=== PATIENT | male | born 1955 | race Caucasian/White ===

== ENCOUNTER 2023-03-26 08:52 | Outpatient (OUT) | payer MEDICARE, OTHER, SELFPAY ==
[2023-03-26 09:16] LABS: Eosinophils Absolute Auto 0.1 10^3/uL (0.0-0.7); Eosinophils Percent Auto 2.3 % (0.9-7.0); Hematocrit 40.1 % (42.0-54.0); Hemoglobin 13.9 g/dL (14.0-18.0); Immature Granulocytes Abs Auto 0.01 10^3/uL (0.00-0.03); Immature Granulocytes Pct Auto 0.3 % (0.0-0.5); Lymphocytes Absolute Auto 1.2 10^3/uL (1.2-3.8); Lymphocytes Percent Auto 31.1 % (20.5-60.0); Mean Corpuscular HGB Conc 34.7 g/dL (29.9-35.2); Mean Corpuscular Hemoglobin 30.5 pg (25.9-34.0); Mean Corpuscular Volume 87.9 fL (80.0-94.0); Mean Platelet Volume 9.1 fL (9.5-13.5); Monocytes Absolute Auto 0.4 10^3/uL (0.3-0.8); Monocytes Percent Auto 11.2 % (1.7-12.0); Neutrophils Absolute Auto 2.1 10^3/uL (1.4-6.5); Neutrophils Percent Auto 54.1 % (43.0-75.0); Platelet Count 141 10^3/uL (150-450); Red Blood Count 4.56 10^6/uL (4.70-6.10); Red Cell Distribution Width 12.2 % (11.0-15.0); White Blood Count 3.8 10^3/uL (4.0-11.0)
[2023-03-26 09:44] LABS: Estimated Average Glucose 105 mg/dL; Glycohemoglobin A1C 5.3 % (4.5-6.2)
[2023-03-26 09:45] LABS: Alanine Aminotransferase 41 U/L (16-63); Anion Gap 12.3; BUN Creatinine Ratio 15.7; Calcium 9.2 mg/dL (8.5-10.1); Carbon Dioxide 27.2 mmol/L (21.0-32.0); Chloride 106 mmol/L (98-107); Chol HDL Ratio 3.4; Cholesterol 131 mg/dL (<=200); Estimated GFR (African America >60 (>=60); Estimated GFR (Non-African Ame >60 (>=60); Glucose 129 mg/dL (74-106); HDL Cholesterol 38 mg/dL (40-60); Potassium 4.5 mmol/L (3.5-5.1); Sodium 141 mmol/L (136-145); Triglycerides 64 mg/dL (<=150); VLDL CHOLESTEROL 12.8 mg/dL
== END 2023-03-26 08:53 ==
LOC: LAB 08:58
PROVIDERS: PCP Internal Medicine; Visit Provider Internal Medicine
DX: I10 Essential (primary) hypertension (principal); E78.5 Hyperlipidemia, unspecified; Z79.899 Other long term (current) drug therapy; R73.01 Impaired fasting glucose
CPT/HCPCS: 36415; 80048; 80061; 83036; 84460; 85025

== ENCOUNTER 2023-07-03 09:58 | Outpatient (OUT) | payer MEDICARE, OTHER, SELFPAY ==
[2023-07-03 11:12] LABS: Basophils Percent Auto 0.9 % (0.2-2.0); Eosinophils Absolute Auto 0.1 10^3/uL (0.0-0.7); Eosinophils Percent Auto 1.7 % (0.9-7.0); Hematocrit 39.3 % (42.0-54.0); Hemoglobin 13.7 g/dL (14.0-18.0); Immature Granulocytes Abs Auto 0.01 10^3/uL (0.00-0.03); Immature Granulocytes Pct Auto 0.2 % (0.0-0.5); Lymphocytes Absolute Auto 1.4 10^3/uL (1.2-3.8); Lymphocytes Percent Auto 29.3 % (20.5-60.0); Mean Corpuscular HGB Conc 34.9 g/dL (29.9-35.2); Mean Corpuscular Hemoglobin 30.9 pg (25.9-34.0); Mean Corpuscular Volume 88.5 fL (80.0-94.0); Mean Platelet Volume 9.5 fL (9.5-13.5); Monocytes Absolute Auto 0.5 10^3/uL (0.3-0.8); Monocytes Percent Auto 9.7 % (1.7-12.0); Neutrophils Absolute Auto 2.7 10^3/uL (1.4-6.5); Neutrophils Percent Auto 58.2 % (43.0-75.0); Platelet Count 165 10^3/uL (150-450); Red Blood Count 4.44 10^6/uL (4.70-6.10); Red Cell Distribution Width 12.6 % (11.0-15.0); White Blood Count 4.6 10^3/uL (4.0-11.0)
== END 2023-07-03 09:59 | disposition home or self-care (01) ==
PROVIDERS: PCP Internal Medicine; Visit Provider Internal Medicine
DX: D61.818 Other pancytopenia (principal)
CPT/HCPCS: 36415; 85025

== ENCOUNTER 2023-09-20 09:18 | Outpatient (OUT) | payer MEDICARE, OTHER, SELFPAY ==
[2023-09-20 09:40] LABS: Basophils Percent Auto 0.9 % (0.2-2.0); Eosinophils Absolute Auto 0.1 10^3/uL (0.0-0.7); Eosinophils Percent Auto 1.8 % (0.9-7.0); Hematocrit 41.6 % (42.0-54.0); Hemoglobin 14.1 g/dL (14.0-18.0); Immature Granulocytes Abs Auto 0.01 10^3/uL (0.00-0.03); Immature Granulocytes Pct Auto 0.2 % (0.0-0.5); Lymphocytes Absolute Auto 1.2 10^3/uL (1.2-3.8); Lymphocytes Percent Auto 27.6 % (20.5-60.0); Mean Corpuscular HGB Conc 33.9 g/dL (29.9-35.2); Mean Corpuscular Hemoglobin 30.3 pg (25.9-34.0); Mean Corpuscular Volume 89.3 fL (80.0-94.0); Mean Platelet Volume 9.3 fL (9.5-13.5); Monocytes Absolute Auto 0.4 10^3/uL (0.3-0.8); Monocytes Percent Auto 9.2 % (1.7-12.0); Neutrophils Absolute Auto 2.7 10^3/uL (1.4-6.5); Neutrophils Percent Auto 60.3 % (43.0-75.0); Platelet Count 154 10^3/uL (150-450); Red Blood Count 4.66 10^6/uL (4.70-6.10); Red Cell Distribution Width 12.5 % (11.0-15.0); White Blood Count 4.5 10^3/uL (4.0-11.0)
[2023-09-20 10:43] LABS: Percent Iron Saturation 34.4 %
== END 2023-09-20 09:19 | disposition home or self-care (01) ==
LOC: LAB 09:19
PROVIDERS: PCP Internal Medicine; Visit Provider Internal Medicine
DX: D64.9 Anemia, unspecified (principal)
CPT/HCPCS: 36415; 82607; 82728; 82746; 83540; 83550; 85025

== ENCOUNTER 2024-03-26 10:01 | Outpatient (OUT) | payer MEDICARE, OTHER, SELFPAY ==
--- OUTSIDE RECORDS SUMMARY | 2024-03-26 10:13 | XMS_ITS | CCD ---
Author Organization [facility]ini[facility] Care Team Providers Care Inbound Customer Service Agent Name Role Phone ZACHARY CAMARGO Primary Care Physician MARY JO, DR NGUYỄN Primary Care Unavailable MARY JO, DR NGUYỄN Admitting Unavailable BALL, DR NGUYỄN Attending Unavailable BALL, DR NGUYỄN Consulting Unavailable BALL, DR NGUYỄN Admitting Unavailable MARY JO, DR NGUYỄN Attending Unavailable BALL, DR NGUYỄN Consulting Unavailable BALL, DR NGUYỄN Primary Care Unavailable Zachary Camargo Unavailable Boris CORDERO Attending Unavailable CORDERO, Boris Hamilton Attending Unavailable CORDERO, Boris Hamilton Attending Unavailable CORDERO, Boris Hamilton Admitting Unavailable Allergies Allergy Classification Reported Allergen(s) Allergy Type Date of Onset Reaction(s) Facility (1 source) No Known Medication Allergies; Translations: [No Known Medication Allergies] Propensity to adverse reactions (disorder) [facility] Repository (2 sources) patient allergy list reviewed by nurse or physicia Propensity to adverse reactions Comment:Done [employer] Other Medications Current Medications Medication Drug Class(es) Dates Sig (Normalized) Sig (Original) acetaminophen 325 mg / HYDROcodone bitartrate 7.5 mg oral tablet (3 sources) Opioid Agonist Start: 04-25-2022 take 1 tablet by mouth once, then take 1 tablet by mouth every hour [place] 325 mg-7.5 mg oral tablet 1 tab(s), Oral, Once, 1 tab(s), Refill(s) 0, Take 1 hour prior to procedure. Don't drive or operate machinery while taking this medication., [facility]/pharmacy #[id number], 180, cm, 02/20/22 8:48:00 EDT, Height/Length Dosing, 96.8, kg, 02/20/22 8:48:00 EDT, Weig... Start Date: 04/25/22 Status: Ordered Aspir 81 (5 sources) Start: 07-17-2021 take 81 mg by mouth once daily Aspir 81 81 mg, Oral, Daily, Refills(s) 0, Blood Thinner Start Date: 07/17/21 Status: Ordered aspirin 81 mg chewable tablet (1 source) Platelet Aggregation Inhibitor, Nonsteroidal Anti-inflammatory Drug Start: 03-31-2020 take 81 mg by mouth once daily Aspirin Active 81 MG PO Daily March 31, 2020 12:00am atorvastatin 20 mg oral tablet (12 sources) HMG-CoA Reductase Inhibitor Start: 03-31-2020 take 1 tablet by mouth at bedtime atorvastatin 20 mg Tab 20 mg = 1 tab(s), Oral, Bedtime, Refills(s) 0, High cholesterol Start Date: 07/14/21 Status: Ordered Osteo Bi-Flex (5 sources) Start: 07-17-2021 take 1 tablet by mouth twice daily Osteo Bi-Flex 1 tab, Oral, BID, Refill(s) 0, Prophylaxis Start Date: 07/17/21 Status: Ordered ciprofloxacin 500 mg oral tablet (3 sources) Quinolone Antimicrobial Start: 04-25-2022 End: 04-28-2022 Cipro 500 mg Tab 500 mg = 1 tab(s), Oral, q12hr, Start 3 days prior to procedure, X 3 day(s), # 6 tab(s), Refills(s) 0, Pharmacy: [facility]/pharmacy #[id number], 180, cm, 02/20/22 8:48:00 EDT, Height/Length Dosing, 96.8, kg, 02/20/22 8:48:00 EDT, Weight Dosing Start Date: 04/25/22 Stop Date: 04/28/22 Status: Ordered Start: 09-14-2021 End: 02-27-2022 take 1 tablet by mouth twice daily Cipro 500 mg Tab 500 mg = 1 tab(s), Oral, BID, X 7 day(s), # 14 tab(s), Refills(s) 0, Pharmacy: [facility]/pharmacy #[id number], 180, cm, 02/20/22 8:48:00 EDT, Height/Length Dosing, 96.8, kg, 02/20/22 8:48:00 EDT, Weight Dosing Start Date: 02/20/22 Stop Date: 02/27/22 Status: Ordered Fish Bsn-Ookyk-8-Vit C-Vit E (1 source) Start: 03-31-2020 take 1 g by mouth once daily Fish Agm-Yqaph-6-Vit C-Vit E Active 1 GM PO Daily March 31, 2020 12:00am Fish Oils (5 sources) Start: 07-17-2021 take 1200 mg by mouth twice daily Fish Oil 1,200 mg, Oral, BID, Refill(s) 0, Prophylaxis Start Date: 07/17/21 Status: Ordered Ibqtmypzamz-G7-Npqgsb christopeh Serr (Osteo Bi-Flex (5-Loxin)) 1,500-400-100 mg-unit-mg Tablet (1 source) Start: 03-31-2020 take 1 tablet by mouth once daily Yrsqkfcinss-T8-Jrzgp llia Serr (Osteo Bi-Flex (5-Loxin)) 1,500-400-100 mg-unit-mg Tablet Active 1 TAB PO Daily March 31, 2020 12:00am lisinopril 20 mg oral tablet (12 sources) Angiotensin Converting Enzyme Inhibitor Start: 03-31-2020 take 1 tablet by mouth once daily lisinopril 20 mg Tab 20 mg = 1 tab(s), Oral, Daily, Refills(s) 0, High blood pressure Start Date: 07/14/21 Status: Ordered metFORMIN hydrochloride 500 mg oral tablet (6 sources) Biguanide Start: 03-31-2020 Metformin Active 500 MG PO As Directed March 31, 2020 12:00am Vitamin D and K oral tablet (5 sources) Start: 09-07-2021 take 1 tablet by mouth once daily Vitamin D and K oral tablet 1 tab, Oral, Daily, Prophylaxis Start Date: 09/07/21 Status: Ordered Completed/Discontinued Medications Medication Drug Class(es) Dates Sig (Normalized) Sig (Original) plenvu 140 gm solution reconstituted (6 sources) Osmotic Laxative, Vitamin C Start: 03-21-2020 Plenvu 140 GM dose 1 pouch at 4pm, dose 2 pouch A & B at 11pm Orally BID for 1 days BIN:[id number] PCN: [id number] GROUP:[id number] ID:[id number] Mar, Not-Taking/PRN Start: 03-21-2020 Plenvu 140 GM dose 1 pouch at 4pm, dose 2 pouch A & B at 11pm Orally BID for 1 days BIN:[id number] PCN: [id number] GROUP:[id number] ID:[id number] Mar, Not-Taking Suprep Bowel Prep Kit 17.5-3.13-1.6 GM/180ML (6 sources) Start: 03-29-2020 take 177 mL by mouth in the evening, then take 177 mL by mouth twice daily in the evening Suprep Bowel Prep Kit 17.5-3.13-1.6 GM/180ML 177 ml bottle at 4 pm and 177 ml bottle at 11 pm Orally Twice a day for 1 day(s) PLEASE CHECK ALLERGIES Mar, Not-Taking/PRN Start: 03-29-2020 take 177 mL by mouth in the evening, then take 177 mL by mouth twice daily in the evening Suprep Bowel Prep Kit 17.5-3.13-1.6 GM/180ML 177 ml bottle at 4 pm and 177 ml bottle at 11 pm Orally Twice a day for 1 day(s) PLEASE CHECK ALLERGIES Mar, Not-Taking Problems Active Problems Problem Classification Problem Date Documented Date Episodic/Chronic Deficiency and other anemia (5 sources) Pancytopenia; Translations: [Other pancytopenia] Chronic Deficiency and other anemia (1 source) Other pancytopenia Chronic Deficiency and other anemia (1 source) Anemia, unspecified Episodic Diabetes mellitus with complications (2 sources) Hyperglycemia due to type 2 diabetes mellitus; Translations: [Type 2 diabetes mellitus with hyperglycemia] Chronic Diabetes mellitus without complication (5 sources) Type 2 diabetes mellitus 09-07-2021 Chronic Diabetes mellitus without complication (20 sources) Impaired fasting glucose; Translations: [Impaired fasting glycemia] Onset: 03-23-2022 Episodic Disorders of lipid metabolism (20 sources) Familial hypercholesterolemia; Translations: [Familial hypercholesterolemia] Onset: 11-07-2018 Resolved: 03-08-2020 09-07-2021 Chronic Essential hypertension (20 sources) Essential hypertension; Translations: [Essential (primary) hypertension] Onset: 03-23-2022 09-07-2021 Chronic Genitourinary symptoms and ill-defined conditions (2 sources) Nocturia Episodic Gout and other crystal arthropathies (2 sources) Gout; Translations: [Gout, unspecified] Onset: 11-07-2018 Chronic Hyperplasia of prostate (19 sources) Benign prostatic hypertrophy with outflow obstruction; Translations: [Benign prostatic hyperplasia with lower urinary tract symptoms] Onset: 02-19-2022 Chronic Other aftercare (2 sources) Other timber cutter (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) drug therapy; Translations: [OTH ALF CURRENT DRUG THERAPY] Onset: 03-23-2022 Episodic Other aftercare (6 sources) H/O: high risk medication; Translations: [Other custodial (current) drug therapy] Episodic Other aftercare (2 sources) Long-term current use of drug therapy; Translations: [Other custodial (current) drug therapy] Episodic Other connective tissue disease (6 sources) H/O: gout; Translations: [Personal history of other diseases of the musculoskeletal system and connective tissue] Episodic Other connective tissue disease (2 sources) H/O: musculoskeletal disease; Translations: [Personal history of other diseases of the musculoskeletal system and connective tissue] Episodic Other diseases of kidney and ureters (1 source) Urinary tract obstruction; Translations: [Other obstructive and reflux uropathy] Onset: 02-19-2022 Episodic Other injuries and conditions due to external causes (2 sources) History of fall; Translations: [History of falling] Episodic Other male genital disorders (8 sources) Prostatic intraepithelial neoplasia; Translations: [Prostatic intraepithelial neoplasia] Onset: 02-20-2022 Episodic Other male genital disorders (2 sources) Prostatic intraepithelial neoplasia Episodic Other nutritional; endocrine; and metabolic disorders (3 sources) Overweight; Translations: [Overweight] 03-24-2024 Episodic Other nutritional; endocrine; and metabolic disorders (2 sources) Overweight; Translations: [Overweight] Episodic Other screening for suspected conditions (not mental disorders or infectious disease) (20 sources) Raised prostate specific antigen; Translations: [Elevated prostate specific antigen [PSA]] Onset: 02-19-2022 Resolved: 03-20-2022 Episodic Skin and subcutaneous tissue infections (11 sources) Carbuncle of back; Translations: [Carbuncle of back [any part, except buttock]] 09-07-2021 Episodic Spondylosis; intervertebral disc disorders; other back problems (9 sources) Cervical spondylosis; Translations: [Spondylosis without myelopathy or radiculopathy, cervical region] Chronic Substance-related disorders (20 sources) Nicotine dependence; Translations: [Tobacco dependence in remission] 07-14-2021 Chronic Past or Other Problems Problem Classification Problem Date Documented Date Episodic/Chronic Cancer of prostate (9 sources) Malignant tumor of prostate; Translations: [High grade prostatic intraepithelial neoplasia] Onset: 09-26-2021 Resolved: 03-20-2022 09-27-2021 Chronic Other nutritional; endocrine; and metabolic disorders (2 sources) Body mass index 30+ - obesity; Translations: [Body mass index 31.0-31.9, adult] Onset: 11-11-2018 Resolved: 03-08-2020 Chronic Other nutritional; endocrine; and metabolic disorders (2 sources) Simple obesity ; Translations: [Other obesity due to excess calories] Onset: 11-11-2018 Resolved: 03-08-2020 Chronic Unclassified (2 sources) Long-term current use of drug therapy; Translations: [Long-term (current) use of other medications] Onset: 11-11-2018 Resolved: 03-08-2020 Results Test Name Value Interpretation Reference Range Facility PSA TotalOrdered By: SYSTEM SYSTEM on 06-14-2023 Prostate specific Ag [Mass/Vol] 5.1 ng/mL High 0.1-3.5 [facility] Remisol Comment on above: Result Comment: The concentration of PSA determined by different manufacturers can vary due to differences in assay methods and reagent specificity. Values obtained from different assay methods cannot be used interchangeably. The methodology used for this result was chemiluminescence using [employer] PSA reagent. Performed By: #### 1 [id number] #### [facility] [address] [place] [id number] Patient Educationon 06-14-20 Patient Education Urology Benign Prostatic Hyperplasia Benign prostatic hyperplasia (BPH) is an enlarged prostate gland that is caused by the normal aging process. The prostate may get bigger as a man gets older. The condition is not caused by cancer. The prostate is a walnut-sized gland that is involved in the production of semen. It is located in front of the rectum and below the bladder. The bladder stores urine. The urethra carries stored urine out of the body. An enlarged prostate can press on the urethra. This can make it harder to pass urine. The buildup of urine in the bladder can cause infection. Back pressure and infection may progress to bladder damage and kidney (renal) failure. What are the causes? This condition is part of the normal aging process. However, not all men develop problems from this condition. If the prostate enlarges away from the urethra, urine flow will not be blocked. If it enlarges toward the urethra and compresses it, there will be problems passing urine. What increases the risk? This condition is more likely to develop in men older than 50 years. What are the signs or symptoms? Symptoms of this condition include: ? Getting up often during the night to urinate. ? Needing to urinate frequently during the day. ? Difficulty starting urine flow. ? Decrease in size and strength of your urine stream. ? Leaking (dribbling) after urinating. ? Inability to pass urine. This needs immediate treatment. ? Inability to completely empty your bladder. ? Pain when you pass urine. This is more common if there is also an infection. ? Urinary tract infection (UTI). How is this diagnosed? This condition is diagnosed based on your medical history, a physical exam, and your symptoms. Tests will also be done, such as: ? A post-void bladder scan. This measures any amount of urine that may remain in your bladder after you finish urinating. ? A digital rectal exam. In a rectal exam, your health care provider checks your prostate by putting a lubricated, gloved finger into your rectum to feel the back of your prostate gland. This exam detects the size of your gland and any abnormal lumps or growths. ? An exam of your urine (urinalysis). ? A prostate specific antigen (PSA) screening. This is a blood test used to screen for prostate cancer. ? An ultrasound. This test uses sound waves to electronically produce a picture of your prostate gland. Your health care provider may refer you to a specialist in kidney and prostate diseases (urologist). How is this treated? Once symptoms begin, your health care provider will monitor your condition (active surveillance or watchful waiting). Treatment for this condition will depend on the severity of your condition. Treatment may include: ? Observation and yearly exams. This may be the only treatment needed if your condition and symptoms are mild. ? Medicines to relieve your symptoms, including: ? Medicines to shrink the prostate. ? Medicines to relax the muscle of the prostate. ? Surgery in severe cases. Surgery may include: ? Prostatectomy. In this procedure, the prostate tissue is removed completely through an open incision or with a laparoscope or robotics. ? Transurethral resection of the prostate (TURP). In this procedure, a tool is inserted through the opening at the tip of the penis (urethra). It is used to cut away tissue of the inner core of the prostate. The pieces are removed through the same opening of the penis. This removes the blockage. ? Transurethral incision (TUIP). In this procedure, small cuts are made in the prostate. This lessens the prostate's pressure on the urethra. ? Transurethral microwave thermotherapy (TUMT). This procedure uses microwaves to create heat. The heat destroys and removes a small amount of prostate tissue. ? Transurethral needle ablation (TUNA). This procedure uses radio frequencies to destroy and remove a small amount of prostate tissue. ? Interstitial laser coagulation (ILC). This procedure uses a laser to destroy and remove a small amount of prostate tissue. ? Transurethral electrovaporization (TUVP). This procedure uses electrodes to destroy and remove a small amount of prostate tissue. ? Prostatic urethral lift. This procedure inserts an implant to push the lobes of the prostate away from the urethra. Follow these instructions at home: ? Take ilzt-uiy-rbaafpz and prescription medicines only as told by your health care provider. ? Monitor your symptoms for any changes. Contact your health care provider with any changes. ? Avoid drinking large amounts of liquid before going to bed or out in public. ? Avoid or reduce how much caffeine or alcohol you drink. ? Give yourself time when you urinate. ? Keep all follow-up visits. This is important. Contact a health care provider if: ? You have unexplained back pain. ? Your symptoms do not get better with treatment. ? You develop side effects from the medicine (more content not included)... Normal [facility] Urology Office/Clinic Noteon 06-14-2023 Urology Office/Clinic Note Chief Complaint 1 year F/U with PSA HPI Staff 1 year F/U with PSA Previous DX; Elevated PSA Last PSA was 01/17/22 5.210. No recent PSA (pt thought he got it done @ [place]. Verified it was NOT done) BPH * No BPH meds at this time Dysuria: _denies Incomplete bladder emptying: denies Hematuria: denies visible blood Frequency: _5-6 times a day Urgency: _denies Nocturia: _once a night Stream: _denies hesitation, normal stream Leaking: _denies Post void dripping: _denies Wearing pads/ Depends: _denies Urge incontinence: _denies Stress incontinence: _denies Incontinence without Sensory Awareness: _denies Abdominal pain: _denies Flank pain: denies Sexual complaints: _denies History of Present Illness Tests reviewed: Reviewed UA. I have reviewed the previous health record information and history for this patient from Dr. Cordero. I have reviewed and verified the staff HPI to be accurate for this encounter. There have been no associated fever, chills, flank pain, or blood in the urine. Denies any urinary infections since last encounter. Review of Systems PHQ Score Initial Depression Screen Score: 0 ROS - Provider Constitutional: denies weight loss, denies hot flashes. Eyes: denies eye problems. Gastrointestinal: denies nausea, denies vomiting. Cardiovascular: denies chest pain or angina. Integumentary: no dryness Musculoskeletal: denies musculoskeletal symptoms. ENMT: denies otolaryngeal symptoms. Respiratory: no shortness of breath. Heme/Lymph: denies easy bleeding tendency, denies easy bruising tendency. Psychiatric: no confusion, no anxiety. Genitourinary: See HPI. Physical Exam Vitals & Measurements T: 36.6 ?C(Temporal Artery) HR: 78(Peripheral) BP: 138/90 HT: 71 in HT: 180 cm WT: 96.8 kg WT: 212.96 lb BMI: 29.88 General Appearance: alert, no distress, well nourished, well developed male. Genitourinary: normal scrotum, normal testes, normal urethra, normal epididymis, normal vas deferens/spermatic cord. Flank Pain: none. Bladder: nonpalpable. Prostate: normal prostate, estimated weight 40 gms, no hard nodule observed. Assessment/Plan 1. BPH with urinary obstruction (N40.1: Benign prostatic hyperplasia with lower urinary tract symptoms) Patient is not currently taking any prostate medications. Weak but steady stream, states it is not worsening. Emptying well. Doesn't always gets up during the night. Denies infections. UA today negative. We discussed medication management, but he states symptoms are not bothersome enough for treatment at this time. 2. Elevated PSA (R97.20: Elevated prostate specific antigen [PSA]) PSA: 04/28/21 - 5.8 & 13.8% 01/17/22 - 5.210 -Patient did not have PSA drawn prior to today's appointment -Will draw IO today Follow up in 1 year w/ PSA if current level is stable. 3. High grade prostatic intraepithelial neoplasia (N42.31: Prostatic intraepithelial neoplasia) S/p TRUS/bx 05/01/22. Path shows HGPIN, 3 cores with inflammation, the rest of the cores are benign. Per a previous note, patient had a second opinion from [facility], which shows no evidence of adenocarcinoma of the prostate. MRI 01/17/22 shows less suspicion for prostate CA Follow-up With When Contact Information CONSUELO HALL, Boris Hamilton, URL [address] [place] [address]- Additional Instructions: 1 year w/ PSA Patient Education Benign Prostatic Hyperplasia I, Noemí Raman, personally scribed for Dr. Cordero on 06/14/2023 10:31:32. . Documentation recorded by the scribe, Noemí Raman, accurately reflects the services(s) I performed and decisions made by me. Authenticated by Dr. Cordero on 06/14/2023 10:35:31. Problem List/Past Medical History Ongoing BPH with urinary obstruction Elevated PSA High grade prostatic intraepithelial neoplasia Nicotine dependence Prostate cancer Historical Carbuncle of back Diabetes mellitus, type II Essential hypertension Hyperlipidemia type II Procedure/Surgical History Biopsy of prostate (09/14/2021), Transrectal biopsy of prostate using ultrasound (US) guidance (09/14/2021), Colonoscopy (03/31/2020), Arthroscopy of knee, CEIOL - Cataract extraction and insertion of intraocular lens. Medications Aspir 81, 81 mg, Oral, Daily atorvastatin 20 mg Tab, 20 mg= 1 tab(s), Oral, Bedtime Fish Oil, 1200 mg, Oral, BID lisinopril 20 mg Tab, 20 mg= 1 tab(s), Oral, Daily Osteo Bi-Flex, 1 tab, Oral, BID Vitamin D and K oral tablet, 1 tab, Oral, Daily Allergies No Known Allergies No Known Medication Allergies Social History Alcohol Current, Beer, 1-2 times per month, 09/07/2021 Substance Abuse - Denies Substance Abuse, 09/07/2021 Tobacco Former smoker, quit more than 30 days ago Tobacco Use:. Cigars, Yes, 06/14/2023 Family History Diabetes: Father. Heart problem: Mother. Immunizations Vaccine Date Status Comments (more content not included)... Normal [facility] Comment on above: Result Comment: Elec tronically Signed By: Boris CORDERO MD\.br\Date and Time Signed: 06/14/23 10:35 EDT\.br\Electronically Co-Signed By: Noemí Raman\.br\Date and Time Co-Signed: 06/14/23 10:31 EDT\.br\Electronically Co-Signed By: Noemí Raman\.br\Date and Time Co-Signed: 06/14/23 10:32 EDT GLYCOHEMOGLOBIN A1Con 2021 ADA RECOMMENDATION SEE BELOW Normal [facility] Comment on above: Result Comment: ADA RECOMMENDED LIMIT 4.0 - 6.0 ADA THERAPEUTIC TARGET < 7.0 ACTION SUGGESTED > 7.0 Performed By: #### A 1C #### [facility] [address] [place] [address] Dr. Brenton Mondragon Glucose [Mass/Vol] 114 mg/dL Normal [facility] Comment on above: Performed By: #### A 1C #### [facility] [address] [place] [address] Dr. Brenton Mondragon HbA1c (Bld) [Mass fraction] 5.6 % Normal 4.5-6.2 [facility] Comment on above: Performed By: #### A 1C #### [facility] [address] [place] [address] Dr. Brenton Mondragon CBC AUTO DIFFon 03-22-2022 BASO # 0.0 103/ul Normal 0.0-0.1 [facility] Comment on above: Performed By: #### C BC #### [facility] [address] [place] [address] Dr. Brenton Mondragon Basophils/100 WBC (Bld) 0.4 % Normal 0.2-2.0 [facility] Comment on above: Performed By: #### C BC #### [facility] [address] [place] [address] Dr. Brenton Mondragon EO # 0.1 103/ul Normal 0.0-0.7 [facility] Comment on above: Performed By: #### C BC #### [facility] [address] [place] [address] Dr. Brenton Mondragon Eosinophils/100 WBC (Bld) 1.1 % Normal 0.9-7.0 [facility] Comment on above: Performed By: #### C BC #### [facility] [address] [place] [address] Dr. Brenton Mondragon Erythrocyte distribution width (RBC) [Ratio] 12.6 % Normal 11.0-15.0 [facility] Comment on above: Performed By: #### C BC #### [facility] [address] [place] [address] Dr. Brenton Mondragon Hematocrit (Bld) [Volume fraction] 41.7 % Critically low 42.0-54.0 [facility] Comment on above: Performed By: #### C BC #### [facility] [address] [place] [address] Dr. Brenton Mondragon Hemoglobin (Bld) [Mass/Vol] 14.5 g/dL Normal 14.0-18.0 [facility] Comment on above: Performed By: #### C BC #### [facility] [address] [place] [address] Dr. Brenton Mondragon IG # 0.01 10e3/ul Normal 0.00-0.03 [facility] Comment on above: Performed By: #### C BC #### [facility] [address] [place] [address] Dr. Brenton Mondragon IG % 0.2 % Normal 0.0-0.5 [facility] Comment on above: Performed By: #### C BC #### [facility] [address] [place] [address] Dr. Brenton Mondragon LYMPH # 1.3 103/ul Normal 1.2-3.8 [facility] Comment on above: Performed By: #### C BC #### [facility] [address] [place] [address] Dr. Brenton Mondragon Lymphocytes/100 WBC (Bld) 28.8 % Normal 20.5-60.0 [facility] Comment on above: Performed By: #### C BC #### [facility] [address] [place] [address] Dr. Brenton Mondragon MANUAL DIFF REQ NO Normal [facility] Comment on above: Performed By: #### C BC #### [facility] [address] [place] [address] Dr. Brenton Mondragon MCH (RBC) [Entitic mass] 30.5 pg Normal 25.9-34.0 [facility] Comment on above: Performed By: #### C BC #### [facility] [address] [place] [address] Dr. Brenton Mondragon MCHC (RBC) [Mass/Vol] 34.8 g/dL Normal 29.9-35.2 [facility] Comment on above: Performed By: #### C BC #### [facility] [address] [place] [address] Dr. Brenton Mondragon MCV (RBC) [Entitic vol] 87.8 fL Normal 80.0-94.0 [facility] Comment on above: Performed By: #### C BC #### [facility] [address] [place] [address] Dr. Brenton Mondragon MONO # 0.4 103/ul Normal 0.3-0.8 [facility] Comment on above: Performed By: #### C BC #### [facility] [address] [place] [address] Dr. Brenton Mondragon Monocytes/100 WBC (Bld) 8.2 % Normal 1.7-12.0 [facility] Comment on above: Performed By: #### C BC #### [facility] [address] [place] [address] Dr. Brenton Mondragon NEUT # 2.8 103/ul Normal 1.4-6.5 [facility] Comment on above: Performed By: #### C BC #### [facility] [address] [place] [address] Dr. Brenton Mondragon Neutrophils/100 WBC (Bld) 61.3 % Normal 43.0-75.0 [facility] Comment on above: Performed By: #### C BC #### [facility] [address] [address] [address] Brenton Mondragon Platelet mean volume (Bld) [Entitic vol] 9.3 fL Critically low 9.5-13.5 [facility] Comment on above: Performed By: #### C BC #### [facility] [address] [address] [address] Brenton Mondragon PLT 156 103/ul Normal 150-450 [facility] Comment on above: Performed By: #### C BC #### [facility] [address] [address] [address] Brenton Mondragon RBC 4.75 106/ul Normal 4.70-6.10 [facility] Comment on above: Performed By: #### C BC #### [facility] [address] [place] [address] Dr. Brenton Mondragon WBC 4.5 103/ul Normal 4.0-11.0 [facility] Comment on above: Performed By: #### C BC #### [facility] [address] [place] [address] Dr. Brenton Mondragon GLYCOHEMOGLOBIN A1Con 2021 ADA RECOMMENDATION SEE BELOW Normal [facility] Comment on above: Result Comment: ADA RECOMMENDED LIMIT 4.0 - 6.0 ADA THERAPEUTIC TARGET < 7.0 ACTION SUGGESTED > 7.0 Performed By: #### A 1C #### [facility] [address] [place] [address] Dr. Brenton Mondragon Glucose [Mass/Vol] 100 mg/dL Normal [facility] Comment on above: Performed By: #### A 1C #### [facility] [address] [place] [address] Dr. Brenton Mondragon HbA1c (Bld) [Mass fraction] 5.1 % Normal 4.5-6.2 [facility] Comment on above: Performed By: #### A 1C #### [facility] [address] [place] [address] Dr. Brenton Mondragon LIPID PROFILEon 03-22-2022 CHOL-HDL RATIO NORM SEE BELOW Normal [facility] Comment on above: Result Comment: 3.3 - 4.4 LOW RISK 4.4 - 7.1 AVERAGE RISK 7.1 - 11.0 MODERATE RISK >11.0 HIGH RISK Performed By: #### L IPID, ALT, BMP #### [facility] [address] [address] [address] Brenton Mondragon Cholesterol [Mass/Vol] 131 mg/dL Normal <=200 [facility] Comment on above: Performed By: #### L IPID, ALT, BMP #### [facility] [address] [address] [address] Brenton Mondragon Cholesterol in HDL [Mass/Vol] 44 mg/dL Normal 40-60 [facility] Comment on above: Performed By: #### L IPID, ALT, BMP #### [facility] [address] [address] [address] Brenton Mondragon Cholesterol in LDL [Mass/Vol] 77.4 mg/dL Normal [facility] Comment on above: Performed By: #### L IPID, ALT, BMP #### [facility] [address] [address] [address] Brenton Mondragon Cholesterol.total/Ch olesterol in HDL [Mass ratio] 3.0 {ratio} Normal [facility] Comment on above: Performed By: #### L IPID, ALT, BMP #### [facility] [address] [address] [address] Brenton Mondragon HDL NORMAL > or = 60 mg/dl - LO W CARDIOVASCULAR RISK <40 mg/dl - HIGH CARDIOVASCULAR RISK Normal [facility] Comment on above: Performed By: #### L IPID, ALT, BMP #### [facility] [address] [address] [address] Brenton Mondragon LDL CALC NORMAL SEE BELOW Normal [facility] Comment on above: Result Comment: <100 mg/dl OPTIMAL 100 - 129 mg/dl NEAR OR ABOVE OPTIMAL 130 - 159 mg/dl BORDERLINE HIGH 160 - 189 mg/dl HIGH >190 mg/dl VERY HIGH Performed By: #### L IPID, ALT, BMP #### [facility] [address] [address] [address] Brenton Mondragon Triglyceride [Mass/Vol] 48 mg/dL Normal <=150 [facility] Comment on above: Performed By: #### L IPID, ALT, BMP #### [facility] [address] [place] [address] Dr. Brenton Mondragon VLDL CALC 9.6 mg/dL Normal [facility] Comment on above: Performed By: #### L IPID, ALT, BMP #### [facility] [address] [place] [address] Dr. Brenton Mondragon PROF CHEM 8 (BAS METB)on Anion gap [Moles/Vol] 11.3 mmol/L Normal [facility] Comment on above: Performed By: #### L IPID, ALT, BMP #### [facility] [address] [place] [address] Dr. Brenton Mondragon Calcium [Mass/Vol] 9.3 mg/dL Normal 8.5-10.1 [facility] Comment on above: Performed By: #### L IPID, ALT, BMP #### [facility] [address] [place] [address] Dr. Brenton Mondragon Chloride [Moles/Vol] 106 mmol/L Normal 98-107 [facility] Comment on above: Performed By: #### L IPID, ALT, BMP #### [facility] [address] [place] [address] Dr. Brenton Mondragon CO2 [Moles/Vol] 28.0 mmol/L Normal 21.0-32.0 [facility] Comment on above: Performed By: #### L IPID, ALT, BMP #### [facility] [address] [place] [address] Dr. Brenton Mondragon Creatinine [Mass/Vol] 0.90 mg/dL Normal 0.70-1.30 [facility] Comment on above: Performed By: #### L IPID, ALT, BMP #### [facility] [address] [place] [address] Dr. Brenton Mondragon EGFR-AF ERITREAN >60 Normal >=60 [facility] Comment on above: Performed By: #### L IPID, ALT, BMP #### [facility] [address] [place] [address] Dr. Brenton Mondragon EGFR-NON AF ERITREAN >60 Normal >=60 [facility] Comment on above: Performed By: #### L IPID, ALT, BMP #### [facility] [address] [place] [address] Dr. Brenton Mondragon Glucose [Mass/Vol] 118 mg/dL Critically high 74-106 [facility] Comment on above: Performed By: #### L IPID, ALT, BMP #### [facility] [address] [place] [address] Dr. Brenton Mondragon Potassium [Moles/Vol] 4.3 mmol/L Normal 3.5-5.1 [facility] Comment on above: Performed By: #### L IPID, ALT, BMP #### [facility] [address] [place] [address] Dr. Brenton Mondragon Sodium [Moles/Vol] 141 mmol/L Normal 136-145 [facility] Comment on above: Performed By: #### L IPID, ALT, BMP #### [facility] [address] [place] [address] Dr. Brenton Mondragon Urea nitrogen [Mass/Vol] 13.0 mg/dL Normal 7.0-18.0 [facility] Comment on above: Performed By: #### L IPID, ALT, BMP #### [facility] [address] [place] [address] Dr. Brenton Mondragon Urea nitrogen/Creatinine [Mass ratio] 14.4 mg/mg Normal [facility] Comment on above: Performed By: #### L IPID, ALT, BMP #### [facility] [address] [place] [address] Dr. Brenton Mondragon [facility] 03-22-2022 ALT [Catalytic activity/Vol] 39 U/L Normal 16-63 [facility] Comment on above: Performed By: #### L IPID, ALT, BMP #### [facility] [address] [place] [address] Dr. Brenton CANTU XRay CREon 04-13-2022 Creatinine [Mass/Vol] 0.8 mg/dL Normal 0.6-1.3 [facility] Comment on above: Result Comment: ER/E SD physician is notified/shown all ISTAT results. Critical values may be confirmed by laboratory testing if deemed necessary by ER attending doctor. Performed By: #### I SCRE #### [facility] [address] [place] [address] Point of Care testing , ISTAT GFR ( > 60 Normal [facility] Comment on above: Result Comment: GFR estimated reference range: According to KDOQI guidelines, <60 ml/min/1.73m2 is sufficient to diagnose a patient with chronic kidney disease. PERFORMED BY: [place] [address] PATHOLOGIST APPLICATION SECURITY SPECIALIST DANIEL ABURTO M.D. Performed By: #### I SCRE #### [facility] [address] [place] [address] Point of Care testing , ISTAT GFR (Non- Am > 60 Normal [facility] Comment on above: Performed By: #### I SCRE #### [address] Point of Care testing , MR prostate wo/w conon 01-17 MR prostate wo/w con [facility] [place] [address] [place] [address] MRI Report Signed Patient: Hero Galloway MR#: [id number] : 1955 Acct:[id number] Age/Sex: 66 / M ADM Date: 01/17/22 Loc: MR Room: Type: [facility] Attending Dr: Boris Cordero MD Ordering Provider: Boris Cordero MD Date of Service: 01/17/22 MR/MR prostate wo/w con: r97.20,c61.1 Copies to: Boris Cordero MD EXAMINATION: MR prostate wo/w con HISTORY: Elevated PSA. History of prostate cancer. COMPARISON: Prostate MRI 07/20/2021 TECHNIQUE: Multiparametric imaging of the prostate gland was performed with IV contrast. FINDINGS: Examination is suboptimal due to breathing motion. Prostate Dimensions: 5.8 x 4.6 x 5.0 cm Prostate Volume: 70 mL. Peripheral Zone: Heterogenous and T2 suggestive of prior prostatitis. The previously identified focal area of T2 hypointensity involving the posterior aspect the left peripheral zone is less conspicuous on today's study with minimal restriction diffusion low ADC value. Please see series 4 image 17, series 750 image 13 and the synthetic DWI series image 13. No extraprostatic extension is seen. No new area of focal T2 or ADC abnormalities identified. Central/Transitional Zone: BPH changes. No focal T2 or ADC map abnormalities identified to suggest prostate malignancy. Seminal Vesicles: Decompressed without focal abnormality. Neurovascular bundles: Unremarkable. Lymphadenopathy: No evidence of lymphadenopathy. Bladder: No focal lesion. Bowel: The visualized bowel is without acute abnormality. Peritoneal Cavity: Bilateral fat filled inguinal hernias. No free fluid. Bones: Heterogenous bone marrow signal. No focal lesion is seen. MR/MR prostate wo/w con IMPRESSION: 1. Previously identified suspicious lesion involving the left peripheral zone is less conspicuous on today's study possibly posttreatment in nature. Examination is overall suboptimal due to motion. No MRI evidence of extraprostatic extension. 2. BPH. Impression dictated by: Jose Daniel Cevallos Jr., DDianeODiane01/17/2022 4:18 PM Dictation Location: [place] [address] Transcribed By: [facility] 01/17/22 1618 Dictated By: Jose Daniel Cevallos Jr, DO 01/17/22 1608 Signed By: 01/17/22 1618 Normal [facility] PSA Total (Not a Screen)on 0 01-17-2022 PSA Total (Not a Screen) 5.210 ng/mL High 0.000-4.000 [facility] Comment on above: Result Comment: PERF ORMED BY: [address] [place] [address] PATHOLOGIST APPLICATION SECURITY SPECIALIST DANIEL ABURTO M.D. Performed By: #### P SATOTAL #### [address] MR prostate wo/w conon 07-21 MR prostate wo/w con [facility] [address] MRI Report Signed Patient: Hero Galloway MR#: [id number] : 1955 Acct:[id number] Age/Sex: 65 / M ADM Date: 07/20/21 Loc: MR Room: Type: [facility] Attending Dr: Boris Cordero MD Ordering Provider: Boris Cordero MD Date of Service: 07/20/21 MR/MR prostate wo/w con: R97.20, ELEVATED PSA Copies to: Boris Cordero MD MRI OF THE PROSTATE GLAND WITHOUT AND WITH CONTRAST INDICATIONS: Elevated prostate specific antigen. Evaluate for prostate cancer. TECHNIQUE: MRI of the prostate gland with and without 20 ML ProHance. PSA 5.8. PI-RADS v2 Classification* PI-RADS 5 Highly Suspicious for Malignancy PI-RADS 4 Probably Malignant PI-RADS 3 Indeterminate PI-RADS 2 Probably Benign PI-RADS 1 Most Probably Benign *Based Upon ACR Guidelines October 2014. FINDINGS: Prostate Gland Size: The prostate gland measures 4.7 cm AP x 6.0 cm transverse x 6.2 cm craniocaudad consistent with a prostatic gland volume of 90.9 mL. PSA Density: 0.0638 ng/mL/cc. Central Zone: No tumor-suspicious regions are identified in the central zone. Transition Zone: There is advanced nodular enlargement and inhomogeneous signal intensity throughout the transition zone most commonly due to benign prostatic hyperplasia. No tumor- suspicious region is identified within the transition zone. Peripheral Zone: There is a tumor suspicious region, PI-RADS 4, involving the left peripheral zone in the mid gland. This is in the 5 o'clock position. This measures 5 x 4 x 4 mm. This can be seen on image 22 series 4 and image 15 series 5. This demonstrates non-circumscribed moderate T2 shortening and evidence of restricted diffusion with contrast enhancement. Extraprostatic Extension: None. Seminal Vesicle Invasion: None. Pelvic Lymphadenopathy: None. Urinary Bladder: The urinary bladder wall is normal in thickness without evidence of a mass. Rectosigmoid Colon: Mild rectal wall thickening. Adjacent enhancement of the mucosa. This could represent mild infection. Recommend further investigation to exclude neoplasm. There is no evidence of diverticulitis or diverticulosis. No rectal hemorrhoids are seen. Pelvic Osseous Structures: There is no evidence of osseous metastatic disease at the level of the prostate gland. IMPRESSION: 1. The prostate gland volume equals 90.9 mL. 2. The PSA density equals 0.0638 ng/mL/cc. 3. There is advanced nodular enlargement and inhomogeneous signal intensity throughout the transition zone most commonly due to benign prostatic hyperplasia. 4. Small tumor suspicious lesion within the left peripheral zone in the mid gland. This is in the 5 o'clock position. This is a PI-RADS 4 classification. 5. There is no evidence of extraprostatic extension of prostate cancer, seminal vesicle invasion or pelvic lymphadenopathy. 6. Area of rectal wall thickening with enhancement. This could be secondary to mild infection. Neoplasm not excluded. Recommend further investigation. Electronically signed on Jul 21, 2021 7:55:17 PM COT by: Lloyd Tsang MD Diplomate, [place] [employer] Report Completed: Jul 21, 2021 7:55:17 PM COT Transcribed By: 07/24/21 0958 Dictated By: NON STAFF 07/21/212054 Signed By: 07/24/21 1000 Normal [facility] ISTAT XRay CREon 07-20-2021 Creatinine [Mass/Vol] 1.0 mg/dL Normal 0.6-1.3 [facility] Comment on above: Result Comment: ER/E SD physician is notified/shown all ISTAT results. Critical values may be confirmed by laboratory testing if deemed necessary by ER attending doctor. Performed By: #### I SCRE #### [facility] [address] [place] [address] Point of Care testing , ISTAT GFR ( > 60 Normal [facility] Comment on above: Result Comment: GFR estimated reference range: According to KDOQI guidelines, <60 ml/min/1.73m2 is sufficient to diagnose a patient with chronic kidney disease. PERFORMED BY: [place] [address] PATHOLOGIST APPLICATION SECURITY SPECIALIST DANIEL ABURTO M.D. Performed By: #### I SCRE #### [facility] [address] [place] [address] Point of Care testing , ISTAT GFR (Non- Am > 60 Normal [facility] Comment on above: Performed By: #### I SCRE #### [facility] [address] Point of Care testing , Vital Signs Date Time Vital Sign Value Performing Clinician Facility 03-24-2024 08:47-0400 Body height 187.96 cm [facility] 03-24-2024 08:47-0400 Body mass index (BMI) [Ratio] 28.4 kg/m2 [facility] 03-24-2024 08:47-0400 Body weight 100.41 kg [facility] 03-24-2024 08:47-0400 Diastolic blood pressure 77 mm[Hg] [facility] 03-24-2024 08:47-0400 Heart rate 54 /min [facility] 03-24-2024 08:47-0400 Respiratory rate 12 /min [facility] 03-24-2024 08:47-0400 Systolic blood pressure 158 mm[Hg] [facility] 09-24-2023 10:00-0500 Body height 187.96 cm Zachary Ball Other [facility] Other 09-24-2023 10:00-0500 Body mass index (BMI) [Ratio] 28.45 kg/m2 Zachary Ball Other [facility] Other 09-24-2023 10:00-0500 Body weight 100.52 kg Zachary Ball Other [facility] Other 09-24-2023 10:00-0500 Diastolic blood pressure 82 mm[Hg] Zachary Ball Other [facility] Other 09-24-2023 10:00-0500 Respiratory rate 12 /min Zachary Ball Other [facility] Other 09-24-2023 10:00-0500 Systolic blood pressure 143 mm[Hg] Zachary Ball Other [facility] Other 03-25-2023 11:00-0400 Body height 187.96 cm Zachary Ball Other [employer] Other 03-25-2023 11:00-0400 Body mass index (BMI) [Ratio] 28.29 kg/m2 Zachary Ball Other [employer] Other 03-25-2023 11:00-0400 Body weight 99.97 kg Zachary Ball Other [employer] Other 03-25-2023 11:00-0400 Diastolic blood pressure 80 mm[Hg] Zachary Ball Other [employer] Other 03-25-2023 11:00-0400 Respiratory rate 12 /min Zachary Ball Other [employer] Other 03-25-2023 11:00-0400 Systolic blood pressure 139 mm[Hg] Zachary Ball Other [employer] Other 05-18-2022 09:28-0400 Blood Pressure Location [email or web address] [facility] 05-18-2022 09:28-0400 Diastolic blood pressure 81 mm[Hg] Boris CORDERO [facility] 05-18-2022 09:28-0400 Heart rate 74 /min Boris CORDERO [facility] 05-18-2022 09:28-0400 Respiratory rate 16 /min Boris CORDERO [facility] 05-18-2022 09:28-0400 Systolic blood pressure 148 mm[Hg] Boris CORDERO [facility] [place] 02-20-2022 08:45-0400 Blood Pressure Location Boris CORDERO [facility] [place] 02-20-2022 08:45-0400 Diastolic blood pressure 75 mm[Hg] Boris CORDERO [facility] [place] 02-20-2022 08:45-0400 Heart rate 73 /min Boris CORDERO [facility] [place] 02-20-2022 08:45-0400 Systolic blood pressure 142 mm[Hg] Boris CORDERO [facility] [place] Encounters Encounter Date Encounter Type Care Provider Facility Start: 03-24-2024 End: 03-24-2024 ambulatory [facility] Work Phone: Start: 03-24-2024 End: 03-24-2024 Patient encounter procedure [facility] Work Phone: Start: 11-12-2023 End: 11-12-2023 ambulatory Zachary Camargo Other [employer] Other Start: 11-12-2023 Telephone encounter Zachary Camargo [facility] Start: 09-24-2023 End: 09-24-2023 ambulatory Zachary Camargo Other [employer] Other Start: 09-24-2023 Office outpatient vi sit 25 minutes Zachary Camargo [facility] Start: 09-17-2023 End: 09-17-2023 ambulatory Zachary Camargo Other [employer] Other Start: 09-17-2023 Telephone encounter Zachary Camargo [facility] Start: 06-26-2023 End: 06-26-2023 ambulatory Zachary Camargo Other [employer] Other Start: 06-26-2023 Telephone encounter Zachary Camargo [facility] Start: 06-14-2023 End: 06-15-2023 ambulatory Boris CORDERO Facility:[facility] Start: 06-14-2023 End: 06-14-2023 Lab Drop off Boris CORDERO [facility] Start: 06-14-2023 End: 06-15-2023 ambulatory Boris CORDERO Facility:[facility] Start: 03-27-2023 End: 03-27-2023 ambulatory Zachary Camargo Other [employer] Other Start: 03-27-2023 Telephone encounter Zachary Camargo [facility] Start: 03-25-2023 End: 03-25-2023 ambulatory Zachary Camargo Other [employer] Other Start: 03-25-2023 Patient encounter procedure Zachary Camargo [facility] Start: 09-20-2022 End: 09-21-[address] ZACHARY CAMARGO Facility: Start: 05-18-2022 End: 05-18-2022 Patient encounter procedure Boris CORDERO [facility] Start: 05-01-2022 End: 05-01-2022 Patient encounter procedure Boris CORDERO [facility] Start: 03-22-2022 End: 03-23-[address] ZACHARY CAMARGO Facility: Start: 03-21-2022 End: 04-25-2022 Pre-admission assessment Boris CORDERO [facility] Start: 03-21-2022 Adult health examination Zachary Camargo Other [employer] Other Start: 03-20-2022 End: 03-20-2022 Pre-procedure evaluation check Zachary Camargo Other [employer] Other Start: 02-20-2022 End: 02-20-2022 Patient encounter procedure Boris CORDERO [facility] [place] Procedures Date Procedure Procedure Detail Performing Clinician Start: 09-14-2021 Biopsy of prostate Rajan hooverswetha CORDERO Start: 09-14-2021 Transrectal biopsy o f prostate using ultrasound guidance Boris CORDERO Start: 03-31-2020 Colonoscopy Boris COOPER TORRESRaimundo Start: 11-11-2018 End: 03-08-2020 Screening for malignant neoplasm of prostate Zachary Camargo Other Arthroscopy of knee Boris CORDERO Cataract extraction and insertion of intraocular lens Boris CORDERO Depression screening August Camargo Other Plan of Treatment Date Care Activity Detail Author Start: 06-15-2024 ambulatory Ambulatory Facility:[facility] metabo lic 2000 panel - Serum or Plasma [facility] Immunizations Immunization Date Immunization Notes Care Provider Fa ron 09-20-2022 Prevnar 20 Zachary Camargo Other [facility] 09-25-2021 SARS-CoV-2 (COVID-19 ) mRNA BNT-162b2 vax Boris CORDERO [facility] [place] Comment on above: Result Comment: [facility] 02-20-2021 SARS-CoV-2 (COVID-19 ) mRNA BNT-162b2 vax Boris CORDERO [facility] [place] 01-30-2021 COVID-19 Vaccine Pfi zer - Documentation Purposes Only Zachary Camargo Other [facility] 01-23-2021 SARS-CoV-2 (COVID-19 ) mRNA BNT-162b2 vax Boris CORDERO [facility] [place] 12-17-2020 zoster vaccine recombinant Zachary Camargo Other [facility] 12-17-2020 zoster vaccine, live August Camargo Other [facility] 09-21-2020 zoster vaccine recombinant Zachary Camargo Other [facility] 02-05-2017 diphtheria, tetanus toxoids and acellular pertussis vaccine, unspecified formulation Zachary Camargo Other [facility] 07-27-2013 tetanus and diphther ia toxoids, adsorbed, preservative free, for adult use (2 Lf of tetanus toxoid and 2 Lf of diphtheria toxoid) Boris CORDEOR [facility] 07-27-2013 tetanus and diphther ia toxoids, adsorbed, preservative free, for adult use (5 Lf of tetanus toxoid and 2 Lf of diphtheria toxoid) Zachary Camargo Other [employer] Other pneumococcal Conjuga te, unspecified formulation; Translations: [Need for prophylactic vaccination against Streptococcus pneumoniae (pneumococcus)] Zachary Camargo Other [employer] Other Payers Date Payer Category Payer Medicare [id number] 1958 Private Health Insurance [id number] 1955 Unknown [id number] 1955 Unknown [id number] 1955 Unknown [id number] 1955 Unknown [id number] 1955 Unknown [id number] Private Health Insurance [employer] [id number] Self-pay Self Pay [id number] Social History Date Type Detail Facility Start: 02-20-2022 End: 05-18-2022 Tobacco smoking status Occasional tobacco smoker (finding) [facility] [employer] Comment on above: cigar once a week Start: 03-31-2020 End: 06-14-2023 Tobacco smoking status Ex-smoker (finding) [facility] [employer] Comment on above: cigar once a week Sex Assigned At Male [facility] [employer] Start: 1955 Sex Assigned At Male F [facility] Functional Status Date Assessment Result Facility 05-18-2022 Functional Status N/A [facility] Clinical Notes 02-19-2022 to 11-12-2023 Note Date & Type Note Facility 11-12-2023 Evaluation note Encounter Date Diagnosis Assessment Notes Nov, IFG (impaired fasting glucose) (ICD-10 - R73.01) [employer] Other 12-19-2023 Evaluation note* Encounter Date Diagnosis Assessment Notes Treatment Notes Treatment Clinical Notes Sep, Primary hypertension (ICD-10 - I10) This patient is instructed to consume a healthy, low-fat, low-salt diet. They are also encouraged to continue exercise to achieve/maintain a normal BMI. Patient is instructed on home BP measurements: - rest for 5 minutes w/o talking- positioned w/ feet on floor and arm supported- average best 2/3 readings w/ goal < 135/85 _update office w/ results Sep, IFG (impaired fastin g glucose) (ICD-10 - R73.01) This patient is following a comprehensive diabetic treatment plan. They are checking their feet daily for calluses and nonhealing ulcers. They are being seen for yearly dilated eye examinations. Goals: SBP less than 130, LDL less than 100, FBS less than 140, A1C less than 7%. They are checking their BS daily, will which are reviewed at the office visit. Continue regular routine monitoring of A1C, Microalbumin, Dilated eye exam and Foot exam Sep, Pure hypercholestero lemia (ICD-10 - E78.00) Instructed on diet and exercise with continued statin therapy.Discussed the beneficial effects of lowering cholesterol in reducing the risk for cerebrovascular and cardiovascular disease. Sep, Benign prostatic hyperplasia with lower urinary tract symptoms (ICD-10 - N40.1) TRUS/Bx: 09/2021, 04/2022 Symptoms tolerable Yearly PSA and FIORELLA. Sep, Nocturia (ICD-10 - R35.1) Sep, Cigarette nicotine dependence in remission (ICD-10 - F17.211) Continue abstinence. Sep, Elevated PSA (ICD-10 - R97.20) TRUS/Bx x 2 w/ intraepithelial neoplasia. Close surveillance of PSA w/ . Denies dysuria or hematuria. 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 Continue close surveillance w/ yearly PSA Sep, Overweight (ICD-10 - E66.3) This patient has been instructed on a low-fat, high-fiber diet. They are instructed to reduce calories, portion sizes and snacks. It is recommended that they exercise for 30 minutes, 3-5 times weekly. [employer] Other 12-12-2023 Evaluation note* Encounter Date Diagnosis Assessment Notes Treatment Notes Treatment Clinical Notes Sep, Anemia (ICD-10 - D64.9) [employer] Other 09-20-2023 Evaluation note* Encounter Date Diagnosis Assessment Notes Treatment Notes Treatment Clinical Notes Jun, Pancytopenia (ICD-10 - D61.818) [employer] Other 06-19-2023 Evaluation note* Encounter Date Diagnosis Assessment Notes Treatment Notes Treatment Clinical Notes Mar, Medicare annual well ness visit, initial (ICD-10 - Z00.00) Personalized health advice was given to the beneficiary including a written plan for screenings discussed and provided. Advanced care planning reviewed and/or information given as requested. Additional counseling was provided here today in regards to, [ ]. The above visit was performed by [ ] under direct supervision of [ ]. Document reviewed and amended by provider signed below. Healthy diet and exercise. Reviewed age-appropriate preventive testing recommended. Mar, Primary hypertension (ICD-10 - I10) This patient is instructed to consume a healthy, low-fat, low-salt diet. They are also encouraged to continue exercise to achieve/maintain a normal BMI. Mar, IFG (impaired fastin g glucose) (ICD-10 - R73.01) This patient is following a comprehensive diabetic treatment plan. They are checking their feet daily for calluses and nonhealing ulcers. They are being seen for yearly dilated eye examinations. Goals: SBP less than 130, LDL less than 100, FBS less than 140, AC and A1C less than 7%. They are checking their BS daily, will which are reviewed at the office visit. Continue regular routine monitoring of A1C,] Microalbumin, Dilated eye exam and Foot exam Mar, Pure hypercholestero lemia (ICD-10 - E78.00) Instructed on diet and exercise with continued statin therapy.Discussed the beneficial effects of lowering cholesterol in reducing the risk for cerebrovascular and cardiovascular disease. Mar, Cervical spondylosis (ICD-10 - M47.812) ROM exercises, heat/ice and Tylenol as needed. Monitor for radicular symptoms Mar, Benign prostatic hyperplasia with lower urinary tract symptoms (ICD-10 - N40.1) TRUS/Bx: 09/2021, 04/2022 Symptoms tolerable Mar, Nocturia (ICD-10 - R35.1) Mar, Cigarette nicotine dependence in remission (ICD-10 - F17.211) Mar, Elevated PSA (ICD-10 - R97.20) Yearly FIORELLA and PSA f/u Mar, Prostatic intraepith elial neoplasia (ICD-10 - N42.31) f/u Mar, High risk medication use (ICD-10 - Z79.899) [employer] Other 08-12-2022 Hospital Discharge instructions Patient Education 05/18/2022 09:55:25 Benign Prostatic Hyperplasia Benign Prostatic Hyperplasia Benign prostatic hyperplasia (BPH) is an enlarged prostate gland that is caused by the normal agingprocess and not by cancer. The prostate is a walnut-sized gland that is involved in the production of semen. It is located in front of the rectum and below the bladder. The bladder stores urine and the urethra is the tube that carries the urine out of the body. The prostate may get bigger as a man gets older. An enlarged prostate can press on the urethra. This can make it harder to pass urine. The build-up of urine in the bladder can cause infection. Back pressure and infection may progress to bladder damage and kidney (renal) failure. What are the causes? This condition is part of a normal aging process. However, not all men develop problems from this condition. If the prostate enlarges away from the urethra, urine flow will not be blocked. If it enlarges toward the urethra and compresses it, there will be problems passing urine. What increases the risk? This condition is more likely to develop in men over the age of 50 years. What are the signs or symptoms? Symptoms of this condition include: Getting up often during the night to urinate. Needing to urinate frequently during the day. Difficulty starting urine flow. Decrease in size and strength of your urine stream. Leaking (dribbling) after urinating. Inability to pass urine. This needs immediate treatment. Inability to completely empty your bladder. Pain when you pass urine. This is more common if there is also an infection. Urinary tract infection (UTI). How is this diagnosed? This condition is diagnosed based on your medical history, a physical exam, and your symptoms. Tests will also be done, such as: A post-void bladder scan. This measures any amount of urine that may remain in your bladder after you finish urinating. A digital rectal exam. In a rectal exam, your health care provider checks your prostate by putting a lubricated, gloved finger into your rectum to feel the back of your prostate gland. This exam detects the size of your gland and any abnormal lumps or growths. An exam of your urine (urinalysis). A prostate specific antigen (PSA) screening. This is a blood test used to screen for prostate cancer. An ultrasound. This test uses sound waves to electronically produce a picture of your prostate gland. Your health care provider may refer you to a specialist in kidney and prostate diseases (urologist). How is this treated? Once symptoms begin, your health care provider will monitor your condition (active surveillance or watchful waiting). Treatment for this condition will depend on the severity of your condition. Treatment may include: Observation and yearly exams. This may be the only treatment needed if your condition and symptoms are mild. Medicines to relieve your symptoms, including: ?Medicines to shrink the prostate. ?Medicines to relax the muscle of the prostate. Surgery in severe cases. Surgery may include: ?Prostatectomy. In this procedure, the prostate tissue is removed completely through an open incision or with a laparoscope or robotics. ?Transurethral resection of the prostate (TURP). In this procedure, a tool is inserted through the opening at the tip of the penis (urethra). It is used to cut away tissue of the inner core of the prostate. The pieces are removed through the same opening of the penis. This removes the blockage. ?Transurethral incision (TUIP). In this procedure, small cuts are made in the prostate. This lessens the prostate's pressure on the urethra. ?Transurethral microwave thermotherapy (TUMT). This procedure uses microwaves to create heat. The heat destroys and removes a small amount of prostate tissue. ?Transurethral needle ablation (TUNA). This procedure uses radio frequencies to destroy and remove a small amount of prostate tissue. ?Interstitial laser coagulation (ILC). This procedure uses a laser to destroy and remove a small amount of prostate tissue. ?Transurethral electrovaporization (TUVP). This procedure uses electrodes to destroy and remove a small amount of prostate tissue. ?Prostatic urethral lift. This procedure inserts an implant to push the lobes of the prostate away from the urethra. Follow these instructions at home: Take yjbz-voe-pfqmaei and prescription medicines only as told by your health care provider. Monitor your symptoms for any changes. Contact your health care provider with any changes. Avoid drinking large amounts of liquid before going to bed or out in public. Avoid or reduce how much caffeine or alcohol you drink. Give yourself time when you urinate. Keep all follow-up visits as told by your health care provider. This is important. Contact a health care provider if: You have unexplained back pain. Your symptoms do not get better with treatment. You develop side effects from the medicine you are taking. Your urine becomes very dark or has a bad smell. Your lower abdomen becomes distended and you have trouble passing your urine. Get help right away if: You have a fever or chills. You suddenly cannot urinate. You feel lightheaded, or very dizzy, or you faint. There are large amounts of blood or clots in the urine. Your urinary problems become hard to manage. You develop moderate to severe low back or flank pain. The flank is the side of your body between the ribs and the hip. These symptoms may represent a serious problem that is an emergency. Do not wait to see if the symptoms will go away. Get medical help right away. Call your local emergency services (911 in the [place] Do not drive yourself to the hospital. Summary Benign prostatic hyperplasia (BPH) is an enlarged prostate that is caused by the normal aging process and not by cancer. An enlarged prostate can press on the urethra. This can make it hard to pass urine. This condition is part of a normal aging process and is more likely to develop in men over the age of 50 years. Get help right away if you suddenly cannot urinate. This information is not intended to replace advice given to you by your health care provider. Make sure you discuss any questions you have with your health care provider. Document Released: 09/23/2006 Document Revised: 08/18/2019 Document Reviewed: 10/28/2017 [place] Patient Education 2019 [employer]. Follow Up Care 05/01/2022 15:50:37 With:CONSUELO HALL, Boris Hamilton, URL Address: [address] [place] [address]- When:Within 1 Year(s) [facility] Mark 07-26-2022 Hospital Discharge instructions Patient Education 05/01/2022 13:38:04 [facility] - Transrectal Ultrasound of the Prostate with US guided biopsy Discharge Instructions (CUSTOM) Transrectal Ultrasound of the Prostate with US guided biopsy Even though there are no visible incisions, multiple prostate biopsies have been taken through the rectum and you need to follow some instructions to minimize the risks of bleeding. You may see some blood in your urine and stool for up to 1 week (and blood in the semen for severalmonths) Diet -You may resume your normal diet, but you may want to avoid alcohol, carbonated drinks, caffeine, and spicy foods, which may increase the irritation from the surgery. -Drink plenty of water to keep the urine clear. Activity -You should limit any physical activity for about 48 hours -No heavy lifting or straining (10 pound limit) -No driving a car and limit long car rides for 2 days -No strenuous exercise -No sexual intercourse until this is discussed with your doctor Bowels -Try to keep your bowel movements soft to minimize straining to have a bowel movement. -You may use a stool softener or over the counter laxative if needed -Difficult bowel movement may lead to straining and bleeding from the prostate Medications -You may resume your home medications unless instructed otherwise -Hold aspirin, ibuprofen, Coumadin (warfarin) and other blood thinners for about two days or until there is no active bleeding unless otherwise instructed -Finish the antibiotic which you have already started Things to watch for which would require an Emergency Room visit or call 911: (this is not a complete list) -Persistent or heavy bleeding or blood clots from the rectum or in the urine -Inability to urinate -Fever over 101.5 degrees Fahrenheit, with or without chills -Severe drug reactions with itching, hives or rash -Tenderness or swelling of the calves, chest pain, or shortness of breath Please call the office to arrange for your post-operative appointment in 1-2 weeks [phone] or [phone] Follow Up Care 04/25/2022 13:36:30 With:Boris CORDERO Address: [facility] [address] [place] [address]- Business (1) When:05/15/2022 13:37:53 [facility]05-16-2022 Hospital Discharge instructions Patient Education 02/19/2022 14:13:19 Prostate Cancer Prostate Cancer The prostate is a walnut-sized gland that is involved in the production of semen. It is located below a man's bladder, in front of the rectum. Prostate cancer is the abnormal growth of cells in the prostate gland. What are the causes? The exact cause of this condition is not known. What increases the risk? This condition is more likely to develop in men who: Are older than age 65. Are -[place]. Are obese. Have a family history of prostate cancer. Have a family history of breast cancer. What are the signs or symptoms? Symptoms of this condition include: A need to urinate often. Weak or interrupted flow of urine. Trouble starting or stopping urination. Inability to urinate. Pain or burning during urination. Painful ejaculation. Blood in urine or semen. Persistent pain or discomfort in the lower back, lower abdomen, hips, or upper thighs. Trouble getting an erection. Trouble emptying the bladder all the way. How is this diagnosed? This condition can be diagnosed with: A digital rectal exam. For this exam, a health care provider inserts a gloved finger into the rectum to feel the prostate gland. A blood test called a prostate-specific antigen (PSA) test. An imaging test called transrectal ultrasonography. A procedure in which a sample of tissue is taken from the prostate and examined under a microscope (prostate biopsy). Once the condition is diagnosed, tests will be done to determine how far the cancer has spread. This is called staging the cancer. Staging may involve imaging tests, such as: A bone scan. A CT scan. A PET scan. An MRI. The stages of prostate cancer are as follows: Stage I. At this stage, the cancer is found in the prostate only. The cancer is not visible on imaging tests and it is usually found by accident, such as during a prostate surgery. Stage II. At this stage, the cancer is more advanced than it is in stage I, but the cancer has not spread outside the prostate. Stage III. At this stage, the cancer has spread beyond the outer layer of the prostate to nearby tissues. The cancer may be found in the seminal vesicles, which are near the bladder and the prostate. Stage IV. At this stage, the cancer has spread other parts of the body, such as the lymph nodes, bones, bladder, rectum, liver, or lungs. How is this treated? Treatment for this condition depends on several factors, including the stage of the cancer, your age, personal preferences, and your overall health. Talk with your health care provider about treatment options that are recommended for you. Common treatments include: Observation for early stage prostate cancer (active surveillance). This involves having exams, blood tests, and in some cases, more biopsies. For some men, this is the only treatment needed. Surgery. Types of surgeries include: ?Open surgery. In this surgery, a larger incision is made to remove the prostate. ?A laparoscopic prostatectomy. This is a surgery to remove the prostate and lymph nodes through several, small incisions. It is often referred to as a minimally invasive surgery. ?A robotic prostatectomy. This is a surgery to remove the prostate and lymph nodes with the help ofa robotic arm that is controlled by a computer. ?Orchiectomy. This is a surgery to remove the testicles. ?Cryosurgery. This is a surgery to freeze and destroy cancer cells. Radiation treatment. Types of radiation treatment include: ?External beam radiation. This type aims beams of radiation from outside the body at the prostate to destroy cancerous cells. ?Brachytherapy. This type uses radioactive needles, seeds, wires, or tubes that are implanted into the prostate gland. Like external beam radiation, brachytherapy destroys cancerous cells. An advantage is that this type of radiation limits the damage to surrounding tissue and has fewer side effects. High-intensity, focused ultrasonography. This treatment destroys cancer cells by delivering high-energy ultrasound waves to the cancerous cells. Chemotherapy medicines. This treatment kills cancer cells or stops them from multiplying. Hormone treatment. This treatment involves taking medicines that act on one of the male hormones (testosterone): ?By stopping your body from producing testosterone. ?By blocking testosterone from reaching cancer cells. Follow these instructions at home: Take hohd-jkj-utskgza and prescription medicines only as told by your health care provider. Maintain a healthy diet. Get plenty of sleep. Consider joining a support group for men who have prostate cancer. Meeting with a support group mayhelp you learn to cope with the stress of having cancer. Keep all follow-up visits as told by your health care provider. This is important. If you have to go to the hospital, notify your cancer specialist (oncologist). Treatment for prostate cancer may affect sexual function. Continue to have intimate moments with your partner. This may include touching, holding, hugging, and caressing. Contact a health care provider if: You have trouble urinating. You have blood in your urine. You have pain in your hips, back, or chest. Get help right away if: You have weakness or numbness in your legs. You cannot control urination or your bowel movements (incontinence). You have trouble breathing. You have sudden chest pain. You have chills or a fever. Summary The prostate is a walnut-sized gland that is involved in the production of semen. It is located below a man's bladder, in front of the rectum. Prostate cancer is the abnormal growth of cells in the prostate gland. Treatment for this condition depends on several factors, including the stage of the cancer, your age, personal preferences, and your overall health. Talk with your health care provider about treatment options that are recommended for you. Consider joining a support group for men who have prostate cancer. Meeting with a support group mayhelp you learn to cope with the stress of having cancer. This information is not intended to replace advice given to you by your health care provider. Make sure you discuss any questions you have with your health care provider. Document Released: 09/23/2006 Document Revised: 09/05/2018 Document Reviewed: 06/03/2017 [place] Patient Education 2020 [employer]. Follow Up Care 01/29/2022 10:14:39 With:Boris CORDERO MD, URL Address: [facility] [address] , [place] [address]- When: Unknown [facility] Evaluation + Plan note Future Appointments Appointment Date:05/11/2022 08:15:00 AM Scheduled Provider:Boris CORDERO MD Location:[facility] Mark Appointment Type:URO Office Visit [facility] Evaluation + Plan note Future Appointments Appointment Date:04/26/2022 08:45:00 AM Scheduled Provider: Location:[facility] Appointment Type:Urology CALL PAT FT Appointment Date:05/01/2022 01:00:00 PM Scheduled Provider: Location:[facility] Appointment Type:Urology FT Appointment Date:05/11/2022 08:15:00 AM Scheduled Provider:Boris CORDERO MD Location:[facility] Future App[facility]ments Appointment Date:05/18/2022 08:00:00 AM Scheduled Provider:Boris CORDERO MD Location:[facility] Appointment Type:URO Office Visit Diagnostic Tests Pending * Prostate Histology ([facility]) [facility]01/22 [facility] Future Appointments Appointment Date:05/27/2023 08:45:00 AM Scheduled Provider:Boris CORDERO MD Location:[facility] Appointment Type:URO Office Visit Diagnostic Tests Pending * PSA Total 02/04/23 [facility] evaluation + Plan note Future Appointments Appointment Date:06/15/2024 11:15:00 AM Scheduled Provider:Boris CORDERO MD Location:[facility] Appointment Type:URO [facility] [employer] Other Evaluation note* Diagnosis Onset Date Resolution Status Benign prostatic hyperplasia with lower urinary tract symptoms acute Hypercholesterolemia acute Hypertension acute IFG (impaired fasting glucose) acute Nicotine addiction acute Overweight acute Screening PSA (prostate specific antigen) acute Medicare annual wellness visit, subsequent noneactive [facility] Work Phone: History general Narrative - Reported* Type Description Date Medical History History of gout Medical History Prostatic intraepithelial neopla joe Medical History Cervical spondylosis Medical History Nicotine dependence, cigarettes, in remission Medical History Impaired fasting glucose Medical History Essential hypertension Medical History Hyperlipidemia type II Medical History High risk medication use Medical History Benign prostatic hyp erplasia with lower urinary tract symptoms Medical History Elevated PSA Medical History Carbuncle of back [any part, exc ept buttock] Surgical History Colonscopy 03/31/2020 Surgical History Transrectal Ultrasound (TRUS) w ith biopsy 04/2022 Surgical History Transrectal Ultrasound (TRUS) w ith biopsy 09/2021 Hospitalization History see surgical history [employer] Other Hospital course Narrative No data available for this section [facility] Discharge instructions No data available for this section [facility] No data available for this section [facility] Summary Purpose Family History Relationship Condition Age at Onset Recorded Date/T moo father Diabetes mellitus Unknown Not Specified Heart problem Unknown Not Specified Heart disease Unknown Advance Directives Advance Directive Response Recorded Date/ Time Advance Directives No March 28 9:53am Chief Complaint and Reason for Visit Chief Complaint 6 month follow up Reason for Visit Benign prostatic hyp erplasia with lower urinary tract symptoms Hypercholesterolemia Hypertension IFG (impaired fasting glucose) Nicotine addiction Overweight Screening PSA (prostate specific antigen) Medicare annual wellness visit, subsequent Additional Source Comments (unrecognized sect ion and content) No Status Records FoundNo Status Records FoundNo Status Records Found INFORMATION SOURCE (unrecogn ized section and content) DATE CREATED AUTHOR 02/01/2022 [facility] DATE CREATED AUTHOR AUTHOR'S ORGANIZ ATION 09/27/2022 [facility] DATE CREATED AUTHOR AUTHOR'S ORGANIZ ATION 06/15/2023 [facility] Care Team (unrecognized sect ion and content) Team Status: Active Member Role Status Dates Zachary Camargo DO Primary Care Provider Active Team Status: Inactive Member Role Status Dates Zachary Camargo DO Primary Care Provide r, Attending Provider Active Start: March 24, 2024 End: March 24, 2024 REASON FOR VISIT (unrecogniz ed section and content) Lab ResultsLab Workrepeat la bs6 month Follow upWellnessrefill Goals (unrecognized section and content) Goals may be documented in a n alternate section FOR RECORDS PERTAINING TO PATIENTS WHO ARE OR HAVE BEEN ENROLLED IN A CHEMICAL DEPENDENCY/SUBSTANCEABUSE PROGRAM, SOME INFORMATION MAY BE OMITTED. This clinical summary was aggregated from multiple sources. Caution should be exercised in using it in the provision of clinical care. This summary normalizes information from multiple sources, and as a consequence, information in this document may materially change the coding, format and clinical context of patient data. In addition, data may be omitted in some cases. CLINICAL DECISIONS SHOULD BE BASED ON THE PRIMARY CLINICAL RECORDS. [facility] provides no warranty or guarantee of the accuracy or completeness of information in this document.
[2024-03-26 10:19] LABS: Basophils Percent Auto 0.6 % (0.2-2.0); Eosinophils Absolute Auto 0.1 10^3/uL (0.0-0.7); Eosinophils Percent Auto 2.1 % (0.9-7.0); Hematocrit 41.1 % (42.0-54.0); Hemoglobin 14.2 g/dL (14.0-18.0); Lymphocytes Absolute Auto 1.5 10^3/uL (1.2-3.8); Lymphocytes Percent Auto 30.5 % (20.5-60.0); Mean Corpuscular HGB Conc 34.5 g/dL (29.9-35.2); Mean Corpuscular Hemoglobin 30.4 pg (25.9-34.0); Mean Platelet Volume 9.3 fL (9.5-13.5); Monocytes Absolute Auto 0.4 10^3/uL (0.3-0.8); Monocytes Percent Auto 8.6 % (1.7-12.0); Neutrophils Absolute Auto 2.8 10^3/uL (1.4-6.5); Neutrophils Percent Auto 58.2 % (43.0-75.0); Platelet Count 158 10^3/uL (150-450); Red Blood Count 4.67 10^6/uL (4.70-6.10); Red Cell Distribution Width 12.6 % (11.0-15.0); White Blood Count 4.8 10^3/uL (4.0-11.0)
[2024-03-26 10:46] LABS: Alanine Aminotransferase 35 U/L (16-63); Albumin Globulin Ratio 1.1; Albumin Level 3.9 g/dL (3.4-5.0); Alkaline Phosphatase 69 U/L (46-116); Anion Gap 11.7; Aspartate Amino Transferase 23 U/L (15-37); BUN Creatinine Ratio 24.4; Bilirubin Total 0.9 mg/dL (0.2-1.0); Calcium 9.1 mg/dL (8.5-10.1); Carbon Dioxide 27.9 mmol/L (21.0-32.0); Chloride 105 mmol/L (98-107); Chol HDL Ratio 3.9; Cholesterol 158 mg/dL (<=200); Estimated GFR (African America >60 (>=60); Estimated GFR (Non-African Ame >60 (>=60); Globulin 3.6 g/dL; Glucose 136 mg/dL (74-106); HDL Cholesterol 41 mg/dL (40-60); LDL Cholesterol Calculated 98.4 mg/dL; Potassium 4.6 mmol/L (3.5-5.1); Sodium 140 mmol/L (136-145); Total Protein 7.5 g/dL (6.4-8.2); Triglycerides 93 mg/dL (<=150); VLDL CHOLESTEROL 18.6 mg/dL
[2024-03-26 10:55] LABS: Estimated Average Glucose 123 mg/dL; Glycohemoglobin A1C 5.9 % (4.5-6.2)
[2024-03-26 11:45] LABS: Prostate Specific Antigen Scrn 5.21 ng/mL (<=4.00)
== END 2024-03-26 10:02 | disposition home or self-care (01) ==
LOC: LAB 10:01
PROVIDERS: PCP Internal Medicine; Visit Provider Internal Medicine
DX: R73.01 Impaired fasting glucose (principal); I10 Essential (primary) hypertension; E78.00 Pure hypercholesterolemia, unspecified; N40.1 Benign prostatic hyperplasia with lower urinary tract symptoms; Z12.5 Encounter for screening for malignant neoplasm of prostate
CPT/HCPCS: 36415; 80053; 80061; 83036; 85025; G0103

== ENCOUNTER 2024-09-22 08:15 | Outpatient (OUT) | payer MEDICARE, OTHER, SELFPAY ==
--- NOTE | 2024-09-22 08:29 | XR_ITS ---
The [address] [address] Patient Name: ROHAN VITAL MRN: [id number] date: 1955 Sex: M Assigned Patient Location: LAB Current Patient Location: LAB Accession/Order Number: [id number] Exam Date: 09/22/2024 08:32 Report Date: 09/22/2024 14:08 At the request of: DELMA CAMARGO Procedure: XR chest 2V EXAMINATION: XR chest 2V HISTORY: Fatigue, Dyspnea COMPARISON: 07/31/2021 TECHNIQUE: PA and lateral FINDINGS: LUNGS: No significant pulmonary parenchymal abnormalities. Stable scattered pulmonary nodules, size and density suggests granulomas VASCULATURE: No increased pulmonary vasculature. PLEURA: No pneumothorax, effusion, or pleural thickening. CARDIAC: No cardiomegaly or cardiac silhouette abnormality. MEDIASTINUM: No visible mass or adenopathy. BONES: No fracture or visible bone lesion. OTHER: Negative. XR/XR chest 2V IMPRESSION: No acute cardiopulmonary process Electronically authenticated by: YUMIKO LONDONO Date: 09/22/2024 14:08
[2024-09-22 09:21] LABS: Thyroid Stimulating Hormone 3.171 uIU/mL (0.358-3.740)
[2024-09-23 10:08] LABS: Testosterone 491 ng/dL (264-916)
== END 2024-09-22 08:16 | disposition home or self-care (01) ==
LOC: LAB 08:17
PROVIDERS: PCP Internal Medicine; Visit Provider Internal Medicine
DX: R53.83 Other fatigue (principal); R06.00 Dyspnea, unspecified
CPT/HCPCS: 36415; 71046; 84403; 84443

== ENCOUNTER 2025-03-31 09:47 | Outpatient (OUT) | payer MEDICARE, OTHER, SELFPAY ==
--- OUTSIDE RECORDS SUMMARY | 2025-03-31 10:05 | XMS_ITS | CCD ---
Author Organization [facility] CliniSyne Care Team Providers Care Medical Care Administrator Name Role Phone ZACHARY DRAPER Primary Care Physician BARON, DR NGUYỄN Primary Care Unavailable BARON, DR NGUYỄN Admitting Unavailable BARON, DR NGUYỄN Attending Unavailable BARON, DR NGUYỄN Consulting Unavailable BARON, DR NGUYỄN Admitting Unavailable BARON, DR NGUYỄN Attending Unavailable BARON, DR NGUYỄN Consulting Unavailable BARON, DR NGUYỄN Primary Care Unavailable Baron, Zachary Unavailable Boris MCCULLOUGH Attending Unavailable Boris MCCULLOUGH Attending Unavailable Allergies Allergy Classification Reported Allergen(s) Allergy Type Date of Onset Reaction(s) Facility (2 sources) patient allergy list reviewed by nurse or physicia Propensity to adverse reactions Comment:[place] Other (1 source) No Known Medication Allergies; Translations: [No Known Medication Allergies] Propensity to adverse reactions (disorder) [facility] Repository Medications Current Medications Medication Drug Class(es) Dates Sig (Normalized) Sig (Original) acetaminophen 325 mg / HYDROcodone bitartrate 7.5 mg oral tablet (3 sources) Opioid Agonist Start: 04-25-2022 take 1 tablet by mouth once, then take 1 tablet by mouth every hour [place] 325 mg-7.5 mg oral tablet 1 tab(s), Oral, Once, 1 tab(s), Refill(s) 0, Take 1 hour prior to procedure. Don't drive or operate machinery while taking this medication., [facility]/pharmacy #[id number], 180, cm, 02/20/22 8:48:00 EDT, Height/Length Dosing, 96.8, kg, 02/20/22 8:48:00 EDT, Weig... Start Date: 04/25/22 Status: Ordered Aspir 81 (6 sources) Start: 07-17-2021 take 81 mg by mouth once daily Aspir 81 81 mg, Oral, Daily, Refills(s) 0, Blood Thinner Start Date: 07/17/21 Status: Ordered aspirin 81 mg chewable tablet (1 source) Platelet Aggregation Inhibitor, Nonsteroidal Anti-inflammatory Drug Start: 03-31-2020 take 81 mg by mouth once daily Aspirin Active 81 MG PO Daily March 31, 2020 12:00am atorvastatin 20 mg oral tablet (13 sources) HMG-CoA Reductase Inhibitor Start: 03-31-2020 take 1 tablet by mouth at bedtime atorvastatin 20 mg Tab 20 mg = 1 tab(s), Oral, Bedtime, Refills(s) 0, High cholesterol Start Date: 07/14/21 Status: Ordered Osteo Bi-Flex (6 sources) Start: 07-17-2021 take 1 tablet by mouth twice daily Osteo Bi-Flex 1 tab, Oral, BID, Refill(s) 0, Prophylaxis Start Date: 07/17/21 Status: Ordered ciprofloxacin 500 mg oral tablet (3 sources) Quinolone Antimicrobial Start: 04-25-2022 End: 04-28-2022 Cipro 500 mg Tab 500 mg = 1 tab(s), Oral, q12hr, Start 3 days prior to procedure, X 3 day(s), # 6 tab(s), Refills(s) 0, Pharmacy: [facility]/pharmacy #[id number], 180, cm, 02/20/22 8:48:00 EDT, Height/Length Dosing, 96.8, kg, 02/20/22 8:48:00 EDT, Weight Dosing Start Date: 04/25/22 Stop Date: 04/28/22 Status: Ordered Start: 09-14-2021 End: 02-27-2022 take 1 tablet by mouth twice daily Cipro 500 mg Tab 500 mg = 1 tab(s), Oral, BID, X 7 day(s), # 14 tab(s), Refills(s) 0, Pharmacy: [facility]/pharmacy #[id number], 180, cm, 02/20/22 8:48:00 EDT, Height/Length Dosing, 96.8, kg, 02/20/22 8:48:00 EDT, Weight Dosing Start Date: 02/20/22 Stop Date: 02/27/22 Status: Ordered Fish Akn-Qdsyn-3-Vit C-Vit E (1 source) Start: 03-31-2020 take 1 g by mouth once daily Fish Vlf-Pmsot-6-Vit C-Vit E Active 1 GM PO Daily March 31, 2020 12:00am Fish Oils (6 sources) Start: 07-17-2021 take 1200 mg by mouth twice daily Fish Oil 1,200 mg, Oral, BID, Refill(s) 0, Prophylaxis Start Date: 07/17/21 Status: Ordered Nbfnhtidhao-P9-Xqivld christophe Serr (Osteo Bi-Flex (5-Loxin)) 1,500-400-100 mg-unit-mg Tablet (1 source) Start: 03-31-2020 take 1 tablet by mouth once daily Problenthbf-I5-Ttzua llia Serr (Osteo Bi-Flex (5-Loxin)) 1,500-400-100 mg-unit-mg Tablet Active 1 TAB PO Daily March 31, 2020 12:00am lisinopril 20 mg oral tablet (13 sources) Angiotensin Converting Enzyme Inhibitor Start: 03-31-2020 take 1 tablet by mouth once daily lisinopril 20 mg Tab 20 mg = 1 tab(s), Oral, Daily, Refills(s) 0, High blood pressure Start Date: 07/14/21 Status: Ordered metFORMIN hydrochloride 500 mg oral tablet (6 sources) Biguanide Start: 03-31-2020 Metformin Active 500 MG PO As Directed March 31, 2020 12:00am Vitamin D and K oral tablet (6 sources) Start: 09-07-2021 take 1 tablet by [...] at 11pm Orally BID for 1 days BIN:[id number] PCN: [id number] GROUP:[id number] ID:[id number] Mar, Not-Taking/PRN Start: 03-21-2020 Plenvu 140 GM dose 1 pouch at 4pm, dose 2 pouch A & B at 11pm Orally BID for 1 days BIN:[id number] PCN: CNRX GROUP:[id number] ID:[id number] Mar, Not-Taking Suprep Bowel Prep Kit 17.5-3.13-1.6 [...] Date Documented Date Episodic/Chronic Cancer of prostate (11 sources) Malignant tumor of prostate; Translations: [High grade prostatic intraepithelial neoplasia] Onset: 09-26-2021 Resolved: 03-20-2022 09-27-2021 Chronic Deficiency and other anemia (5 sources) Pancytopenia; Translations: [Other pancytopenia] Chronic Deficiency and other anemia (1 source) Other pancytopenia Chronic Deficiency and other anemia (1 source) Anemia, unspecified Episodic Diabetes mellitus with complications (2 sources) Hyperglycemia due to type 2 diabetes mellitus; Translations: [Type 2 diabetes mellitus with hyperglycemia] Chronic Diabetes mellitus without complication (6 sources) Type 2 diabetes mellitus 09-07-2021 Chronic [...] unspecified] Onset: 11-07-2018 Chronic Hyperplasia of prostate (20 sources) Benign prostatic hypertrophy with outflow obstruction; Translations: [Benign prostatic hyperplasia with lower urinary tract symptoms] Onset: 02-19-2022 Chronic Other aftercare (2 sources) Other snf (current) drug therapy; Translations: [[facility] CURRENT DRUG THERAPY] Onset: 03-23-2022 Episodic Other aftercare (6 sources) H/O: high risk medication; Translations: [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] Episodic Other aftercare (2 sources) Long-term current use of drug therapy; Translations: [Other snf (current) drug therapy] Episodic Other connective tissue [...] 03-20-2022 Episodic Skin and subcutaneous tissue infections (12 sources) Carbuncle of back; Translations: [Carbuncle of back [any part, except buttock]] 09-07-2021 Episodic Spondylosis; intervertebral disc disorders; other back problems (9 sources) Cervical spondylosis; Translations: [Spondylosis without myelopathy or radiculopathy, cervical region] Chronic Substance-related disorders (20 sources) Nicotine dependence; Translations: [Tobacco dependence in remission] 07-14-2021 Chronic Past or Other Problems Problem Classification Problem Date Documented Da te Episodic/Chronic Other nutritional; endocrine; and metabolic disorders (2 [...] Test Name Value Interpretation Reference Range Facility Ambulatory Visit Summaryon 0 06-15-2024 Ambulatory Visit Summary Ambulatory Visit Summary [facility] :1955 Visit Date:06/15/2024 Ambulatory Visit Instructions Your Diagnosis Elevated PSA BPH with urinary obstruction Your Care Team Attending Physician - Boris MCCULLOUGH MD Primary Care Physician - ZACHARY DRAPER DO This Is Your Medications List Contact prescribing physician if questions or concerns aspirin (Aspir 81) atorvastatin (atorvastatin 20 mg Tab) chondroitin-glucosam ine (Osteo Bi-Flex) lisinopril (lisinopril 20 mg Tab) multivitamin (Vitamin D and K oral tablet) omega-3 polyunsaturated fatty acids (Fish Oil) Procedures Performed Biopsy of prostate (09/14/2021), Transrectal biopsy of prostate using ultrasound (US) guidance (09/14/2021), Colonoscopy (03/31/2020), Arthroscopy of knee, CEIOL - Cataract extraction and insertion of intraocular lens. Discharge Vitals Heart Rate (Peripheral) 76 Respiratory Rate 16 Blood Pressure 156/82 Height 71 in Height 180 cm Weight 212.96 lb Weight 96.8 kg BMI 29.88 What to do next Scheduled Follow-Up Appointments Saturday 8:15 AM EDT With: Boris MCCULLOUGH MD Where: [facility] [id number]- You Need to Schedule the Following Appointments Follow Up with Boris MCCULLOUGH MD, URL When: Where: [facility] [address] [place] [address]- Medications What How Much When Instructions Unchanged aspirin (Aspir 81) 81 Milligram By Mouth Every day Contact prescribing physician if questions or concerns Unchanged atorvastatin (atorvastatin 20 mg Tab) 1 Tablets By Mouth At bedtime Contact prescribing physician if questions or concerns Unchanged chondroitin-glucosam ine (Osteo Bi-Flex) 1 tab By Mouth 2 times a day Contact prescribing physician if questions or concerns Unchanged lisinopril (lisinopril 20 mg Tab) 1 Tablets By Mouth Every day Contact prescribing physician if questions or concerns Unchanged multivitamin (Vitamin D and K oral tablet) 1 tab By Mouth Every day Contact prescribing physician if questions or concerns Unchanged omega-3 polyunsaturated fatty acids (Fish Oil) 1,200 Milligram By Mouth 2 times a day Contact prescribing physician if questions or concerns Allergies No Known Allergies No Known Medication Allergies Problems Ongoing - Any problem that you are currently receiving treatment for. BPH with urinary obstruction Elevated PSA High grade prostatic intraepithelial neoplasia Nicotine dependence Prostate cancer Historical - Any problem that you are no longer receiving treatment for. Carbuncle of back Diabetes mellitus, type II Essential hypertension Hyperlipidemia type II Patient Survey You may receive a survey via text or e-mail asking about your office visit. Please share your experience with us by completing your survey. We appreciate your feedback and thank you for choosing us for your care. Education Materials Prostate Cancer Screening Prostate cancer screening is testing that is done to check for the presence of prostate cancer in men. The prostate gland is a walnut-sized gland that is located below the bladder and in front of the rectum in males. The function of the prostate is to add fluid to semen during ejaculation. Prostate cancer is one of the most common types of cancer in men. Who should have prostate cancer screening? Screening recommendations vary based on age and other risk factors, as well as between the professional organizations who make the recommendations. In general, screening is recommended if: ? You are age 50 to 70 and have an average risk for prostate cancer. You should talk with your health care provider about your need for screening and how often screening should be done. Because most prostate cancers are slow growing and will not cause , screening in this age group is generally reserved for men who have a 10- to 15-year life expectancy. ? You are younger than age 50, and you have these risk factors: ? Having a father, brother, or uncle who has been diagnosed with prostate cancer. The risk is higher if your family member's cancer occurred at an early age or if you have multiple family members with prostate cancer at an early age. ? Being a male who is Black or is of [place] or sub-Saharan descent. In general, screening is not recommended if: ? You are younger than age 40. ? You are between the ages of 40 and 49 and you have no risk factors. ? You are 70 years of age or older. At this age, the risks that screening can cause are greater than the benefits that it may provide. If you are at high risk for prostate cancer, your health care provider may recommend that you have screenings more often or that you start screening at a younger age. How is screening for prostate cancer done? The recommended prostate canc (more content not included)... Normal [facility] Urology Office/Clinic Noteon 06-15-2024 Urology Office/Clinic Note Urology Office/Clinic Note Chief Complaint 1 year follow up with PSA HPI Staff 1 year f/u with PSA Dx: BPH with obstruction, elevated PSA and high grade prostatic intraepithelial neoplasia PSA done 03/26/24 is 5.21 Dysuria: denies Incomplete bladder emptying: denies Hematuria: denies Frequency: denies Urgency: denies Nocturia: sometimes once but mostly none Stream: denies hesitancy, has a steady stream Leaking: denies Post void dripping: denies Wearing pads/ Depends: denies Urge incontinence: denies Stress incontinence: denies Incontinence without Sensory Awareness: denies Abdominal pain: denies Flank pain: denies Sexual complaints: _ History of Present Illness Tests reviewed: reviewed UA, PSA I have reviewed the previous health record information and history for this patient from Dr. Mccullough. I have reviewed and verified the staff HPI to be accurate for this encounter. Review of Systems PHQ Score Initial Depression Screen Score: 0 SCORE ROS - Provider Constitutional: denies weight loss, denies hot flashes. Eyes: denies eye problems. Gastrointestinal: denies nausea, denies vomiting. Cardiovascular: denies chest pain or angina. Integumentary: no dryness Musculoskeletal: denies musculoskeletal symptoms. ENMT: denies otolaryngeal symptoms. Respiratory: no shortness of breath. Heme/Lymph: denies easy bleeding tendency, denies easy bruising tendency. Psychiatric: no confusion, no anxiety. Genitourinary: See HPI. Physical Exam Vitals & Measurements HR: 76(Peripheral) RR: 16 BP: 156/82 HT: 71 in HT: 180 cm WT: 96.8 kg WT: 212.96 lb BMI: 29.88 General Appearance: alert, no distress, well nourished, well developed male. Genitourinary: normal scrotum, normal testes, normal urethra, normal epididymis, normal vas deferens/spermatic cord. Flank Pain: none. Bladder: nonpalpable. Prostate: normal prostate, estimated weight 40 gms, no hard nodule observed. Assessment/Plan 1. Elevated PSA (R97.20: Elevated prostate specific antigen [PSA]) PSA: 04/28/21 - 5.80 & 13.8% 01/17/22 - 5.21 03/26/24 - 5.21 MRI of prostate 07/20/21 - PI-RADS 4 lesion L PZ in the mid gland, 5 oclock position. Neg for EPE, SV invation, or pelvic lymphadenopathy. PSAD 0.0638. Prostate volume 90.9 cc. TRUS/bx 09/14/21 - G6 (3+3) x 1/2 cores (R2). HGPIN x 6 cores. AUBRIE x 2 cores. Sent to [facility] for second opinion which showed HGPIN x 4 cores. Prostate tissue with small focus of atypical glands highly suspicious for low-grade adenocarcinoma with adjacent HGPIN. MRI of prostate 01/17/22 - Previously id'd suspicious lesion involving the L PZ is less conspicuous on today's study possibly post-tx in nature. Exam is overall suboptimal due to motion. No evidence of EPE. Prostate volume 70 cc. TRUS/bx 05/01/22 - HGPIN x 1 core (LB). Focal chronic inflammation x 3 cores. PSA stable. Will cont to monitor. Pt shares he also had PSA through his PCP a few mos ago and was also wnl. FIORELLA ~40 g, no nodules. Follow up 1 yr with PSA or sooner if needed. Pt understands and agrees with plan. 2. BPH with urinary obstruction (N40.1: Benign prostatic hyperplasia with lower urinary tract symptoms) UA today negative for blood and infection. Not taking any BPH meds. Steady stream. Nocturia 0-1x/night. urination not bothersome. Estimates he voids q3-4hr during the day. Follow-up With When Contact Information Boris MCCULLOUGH MD, URL [facility] [address], [place] [address]- Additional Instructions: 1 yr with PSA Patient Education Prostate Cancer Screening I, Glo Tena, personally scribed for Dr. Mccullough on 06/15/2024 12:28:12. . Documentation recorded by the scribe, Glo Tena, accurately reflects the services(s) I performed and decisions made by me. Authenticated by Dr. Mccullough on 06/15/2024 12:29:53. Problem List/Past Medical History Ongoing BPH with [...] Former smoker, quit more than 30 days (more content not included)... Normal [facility] Comment on above: Result Comment: Elec tronically Signed By: Boris MCCULLOUGH MD\.br\Date and Time Signed: 06/15/24 12:29 EDT\.br\Electronically Co-Signed By: Glo Tena\.br\Date and Time Co-Signed: 06/15/24 12:29 EDT CHEMISTRYOrdered By: SYSTEM SYSTEM on 06-14-2023 Prostate specific Ag [Mass/Vol] 5.1 ng/mL High 0.1 - 3.5 ng/mL [facility] Remisol GLYCOHEMOGLOBIN A1Con 2021 ADA RECOMMENDATION SEE BELOW [facility] Comment on above: Result Comment: ADA RECOMMENDED LIMIT 4.0 - 6.0 ADA THERAPEUTIC TARGET < 7.0 ACTION SUGGESTED > 7.0 Performed By: #### A 1C #### [facility] [address] [place] [address] Dr. Brenton Mondragon Glucose [Mass/Vol] 114 mg/dL Normal [facility] Comment on above: Performed By: #### A 1C #### [facility] [address] [place] [address] Dr. Brenton Mondragon HbA1c (Bld) [Mass fraction] 5.6 % Normal 4.5-6.2 [facility] Comment on above: Performed By: #### A 1C #### [facility] [address] [place] [address] Dr. Brenton Mondragon CBC AUTO DIFFon 03-22-2022 BASO # 0.0 103/ul Normal 0.0-0.1 [facility] Comment on above: Performed By: #### C BC #### [facility] [address] [place] [address] Dr. Brenton Mondragon Basophils/100 WBC (Bld) 0.4 % Normal 0.2-2.0 [facility] Comment on above: Performed By: #### C BC #### [facility] [address] [place] [address] Dr. Brenton Mondragon EO # 0.1 103/ul Normal 0.0-0.7 [facility] Comment on above: Performed By: #### C BC #### [facility] [address] [place] [address] Dr. Brenton Mondragon Eosinophils/100 WBC (Bld) 1.1 % Normal 0.9-7.0 [facility] Comment on above: Performed By: #### C BC #### [facility] [address] [place] [address] Dr. Brenton Mondragon Erythrocyte distribution width (RBC) [Ratio] 12.6 % Normal 11.0-15.0 [facility] Comment on above: Performed By: #### C BC #### [facility] [address] [place] [address] Dr. Brenton Mondragon Hematocrit (Bld) [Volume fraction] 41.7 % Critically low 42.0-54.0 [facility] Comment on above: Performed By: #### C BC #### [facility] [address] [place] [address] Dr. Brenton Mondragon Hemoglobin (Bld) [Mass/Vol] 14.5 g/dL Normal 14.0-18.0 [facility] Comment on above: Performed By: #### C BC #### [facility] [address] [place] [address] Dr. Brenton Mondragon IG # 0.01 10e3/ul Normal 0.00-0.03 [facility] Comment on above: Performed By: #### C BC #### [facility] [address] [place] [address] Dr. Brenton Mondragon IG % 0.2 % Normal 0.0-0.5 [facility] Comment on above: Performed By: #### C BC #### [facility] [address] [place] [address] Dr. Brenton Mondragon LYMPH # 1.3 103/ul Normal 1.2-3.8 [facility] Comment on above: Performed By: #### C BC #### [facility] [address] [place] [address] Dr. Brenton Mondragon Lymphocytes/100 WBC (Bld) 28.8 % Normal 20.5-60.0 [facility] Comment on above: Performed By: #### C BC #### [facility] [address] [place] [address] Dr. Brenton Mondragon MANUAL DIFF REQ NO Normal [facility] Comment on above: Performed By: #### C BC #### [facility] [address] [place] [address] Dr. Brenton Mondragon MCH (RBC) [Entitic mass] 30.5 pg Normal 25.9-34.0 [facility] [place] [facility] Comment on above: Performed By: #### C BC #### [facility] [address] [address] [address] Brenton Mondragon MCHC (RBC) [Mass/Vol] 34.8 g/dL Normal 29.9-35.2 [facility] Comment on above: Performed By: #### C BC #### [facility] [address] [address] [address] Brenton Mondragon MCV (RBC) [Entitic vol] 87.8 fL Normal 80.0-94.0 [facility] Comment on above: Performed By: #### C BC #### [facility] [address] [place] [address] Dr. Brenton Mondragon MONO # 0.4 103/ul Normal 0.3-0.8 [facility] Comment on above: Performed By: #### C BC #### [facility] [address] [place] [address] Dr. Brenton Mondragon Monocytes/100 WBC (Bld) 8.2 % Normal 1.7-12.0 [facility] Comment on above: Performed By: #### C BC #### [facility] [address] [place] [address] Dr. Brenton Mondragon NEUT # 2.8 103/ul Normal 1.4-6.5 [facility] Comment on above: Performed By: #### C BC #### [facility] [address] [place] [address] Dr. Brenton Mondragon Neutrophils/100 WBC (Bld) 61.3 % Normal 43.0-75.0 [facility] Comment on above: Performed By: #### C BC #### [facility] [address] [place] [address] Dr. Brenton Mondragon Platelet mean volume (Bld) [Entitic vol] 9.3 fL Critically low 9.5-13.5 [facility] Comment on above: Performed By: #### C BC #### [facility] [address] [place] [address] Dr. Brenton Mondragon PLT 156 103/ul Normal 150-450 [facility] Comment on above: Performed By: #### C BC #### [facility] [address] [place] [address] Dr. Brenton Mondragon RBC 4.75 106/ul Normal 4.70-6.10 [facility] Comment on above: Performed By: #### C BC #### [facility] [address] [place] [address] Dr. Brenton Mondragon WBC 4.5 103/ul Normal 4.0-11.0 [facility] Comment on above: Performed By: #### C BC #### [facility] [address] [place] [address] Dr. Brenton Mondragon GLYCOHEMOGLOBIN A1Con 2021 ADA RECOMMENDATION SEE BELOW [facility] Comment on above: Result Comment: ADA RECOMMENDED LIMIT 4.0 - 6.0 ADA THERAPEUTIC TARGET < 7.0 ACTION SUGGESTED > 7.0 Performed By: #### A 1C #### [facility] [address] [place] [address] Dr. Brenton Mondragon Glucose [Mass/Vol] 100 mg/dL Normal [facility] Comment on above: Performed By: #### A 1C #### [facility] [address] [place] [address] Dr. Brenton Mondragon HbA1c (Bld) [Mass fraction] 5.1 % Normal 4.5-6.2 [facility] Comment on above: Performed By: #### A 1C #### [facility] [address] [place] [address] Dr. Brenton Mondragon LIPID PROFILEon 03-22-2022 CHOL-HDL RATIO NORM SEE BELOW Normal [facility] Comment on above: Result Comment: 3.3 - 4.4 LOW RISK 4.4 - 7.1 AVERAGE RISK 7.1 - 11.0 MODERATE RISK >11.0 HIGH RISK Performed By: #### L IPID, ALT, BMP #### [facility] [address] [place] [address] Dr. Brenton Mondragon Cholesterol [Mass/Vol] 131 mg/dL Normal <=200 [facility] Comment on above: Performed By: #### L IPID, ALT, BMP #### [facility] [address] [address] [address] Brenton Mondragon Cholesterol in HDL [Mass/Vol] 44 mg/dL Normal 40-60 [facility] Comment on above: Performed By: #### L IPID, ALT, BMP #### [facility] [address] [address] [address] Brenton Mondragon Cholesterol in LDL [Mass/Vol] 77.4 mg/dL Normal [facility] Comment on above: Performed By: #### L IPID, ALT, BMP #### [facility] [address] [address] [address] Brenton Mondragon Cholesterol.total/Cho lesterol in HDL [Mass ratio] 3.0 {ratio} Normal [facility] Comment on above: Performed By: #### L IPID, ALT, BMP #### [facility] [address] [address] [address] Brenton Mondragon HDL NORMAL > or = 60 mg/dl - LOW CARDIOVASCULAR RISK <40 mg/dl - HIGH CARDIOVASCULAR RISK Normal [facility] Comment on above: Performed By: #### L IPID, ALT, BMP #### [facility] [address] [address] [address] Brenton Mondragon LDL CALC NORMAL SEE BELOW Normal [facility] Comment on above: Result Comment: <100 mg/dl OPTIMAL 100 - 129 mg/dl NEAR OR ABOVE OPTIMAL 130 - 159 mg/dl BORDERLINE HIGH 160 - 189 mg/dl HIGH >190 mg/dl VERY HIGH Performed By: #### L IPID, ALT, BMP #### [facility] [address] [address] [address] Brenton Mondragon Triglyceride [Mass/Vol] 48 mg/dL Normal <=150 [facility] Comment on above: Performed By: #### L IPID, ALT, BMP #### [facility] [address] [address] [address] Brenton Mondragon VLDL CALC 9.6 mg/dL Normal [facility] Comment on above: Performed By: #### L IPID, ALT, BMP #### [facility] [address] [address] [address] Brenton Mondragon PROF CHEM 8 (BAS METB)on Anion gap [Moles/Vol] 11.3 mmol/L Normal Th [facility] Comment on above: Performed By: #### L IPID, ALT, BMP #### [facility] [address] [place] [address] Dr. Brenton Mondragon Calcium [Mass/Vol] 9.3 mg/dL Normal 8.5-10.1 [facility] Comment on above: Performed By: #### L IPID, ALT, BMP #### [facility] [address] [place] [address] Dr. Brenton Mondragon Chloride [Moles/Vol] 106 mmol/L Normal 98-107 [facility] Comment on above: Performed By: #### L IPID, ALT, BMP #### [facility] [address] [place] [address] Dr. Brenton Mondragon CO2 [Moles/Vol] 28.0 mmol/L Normal 21.0-32.0 [facility] Comment on above: Performed By: #### L IPID, ALT, BMP #### [facility] [address] [place] [address] Dr. Brenton Mondragon Creatinine [Mass/Vol] 0.90 mg/dL Normal 0.70-1.30 [facility] Comment on above: Performed By: #### L IPID, ALT, BMP #### [facility] [address] [place] [address] Dr. Brenton Mondragon EGFR-AF PALESTINIAN >60 Normal >=60 [facility] Comment on above: Performed By: #### L IPID, ALT, BMP #### [facility] [address] [place] [address] Dr. Brenton Mondragon EGFR-NON AF PALESTINIAN >60 Normal >=60 [facility] Comment on above: Performed By: #### L IPID, ALT, BMP #### [facility] [address] [place] [address] Dr. Brenton Mondragon Glucose [Mass/Vol] 118 mg/dL Critically high 74-106 [facility] Comment on above: Performed By: #### L IPID, ALT, BMP #### [facility] [address] [address] [address] Brenton Mondragon Potassium [Moles/Vol] 4.3 mmol/L Normal 3.5-5.1 [facility] Comment on above: Performed By: #### L IPID, ALT, BMP #### [facility] [address] [address] [address] Brenton Mondragon Sodium [Moles/Vol] 141 mmol/L Normal 136-145 [facility] Comment on above: Performed By: #### L IPID, ALT, BMP #### [facility] [address] [address] [address] Brenton Mondragon Urea nitrogen [Mass/Vol] 13.0 mg/dL Normal 7.0-18.0 [facility] Comment on above: Performed By: #### L IPID, ALT, BMP #### [facility] [address] [place] [address] Dr. Brenton Mondragon Urea nitrogen/Creatinine [Mass ratio] 14.4 mg/mg Normal [facility] Comment on above: Performed By: #### L IPID, ALT, BMP #### [facility] [address] [place] [address] Dr. Brenton Mondragon [facility] 03-22-2022 ALT [Catalytic activity/Vol] 39 U/L Normal 16-63 [facility] Comment on above: Performed By: #### L IPID, ALT, BMP #### [facility] [address] [place] [address] Dr. Brenton Mondragon ISTAT XRay CREon 01-17-2022 Creatinine [Mass/Vol] 0.8 mg/dL Normal 0.6-1.3 [facility] Comment on above: Result Comment: ER/E SD physician is notified/shown all ISTAT results. Critical values may be confirmed by laboratory testing if deemed necessary by ER attending doctor. Performed By: #### I SCRE #### [facility] [address] Point of Care testing , ISTAT GFR ( > 60 Normal [facility] Comment on above: Result Comment: GFR estimated reference range: According to KDOQI guidelines, <60 ml/min/1.73m2 is sufficient to diagnose a patient with chronic kidney disease. PERFORMED BY: [place] [address] PATHOLOGIST EVENT MARKETING INTERN DANIEL ABURTO M.D. Performed By: #### I SCRE #### [facility] [address] [place] [address] Point of Care testing , ISTAT GFR (Non- Am > 60 Normal [facility] Comment on above: Performed By: #### I SCRE #### [facility] [address] [place] [address] Point of Care testing , MR prostate wo/w conon 01-17 MR prostate wo/w con [facility] Main [place] [address] [place] [address] MRI Report Signed Patient: Hero Vital MR#: [id number] : 1955 Acct:[id number] Age/Sex: 66 / M ADM Date: 01/17/22 Loc: Room: Type: [facility] Attending Dr: Boris Mccullough MD Ordering Provider: Boris Mccullough MD Date of Service: 01/17/22 MR/MR prostate wo/w con: r97.20,c61.1 Copies to: Boris Mccullough MD EXAMINATION: MR prostate wo/w con HISTORY: [...] Impression dictated by: Jose Daniel Cevallos Jr., D.O.01/17/2022 4:18 PM Dictation Location: [address] [address] Transcribed By: [facility] 01/17/22 1618 Dictated By: Jose Daniel Cevallos Jr, DO 01/17/22 1608 Signed By: 01/17/22 1618 Normal [facility] PSA Total (Not a Screen)on 0 01-17-2022 PSA Total (Not a Screen) 5.210 ng/mL High 0.000-4.000 [facility] Comment on above: Result Comment: PERF ORMED BY: [place] [address] PATHOLOGIST EVENT [employer]ET[employer] INTERN DANIEL ABURTO M.D. Performed By: #### P SATOTAL #### [address] MR prostate wo/w conon 07-21 MR prostate wo/w con [facility] [place] [address] MRI Report Signed Patient: Hero Vital MR#: [id number] : 1955 Acct:[id number] Age/Sex: 65 / M ADM Date: 07/20/21 Loc: MR Room: Type: [facility] Attending Dr: Boris Mccullough MD Ordering Provider: Boris Mccullough MD Date of Service: 07/20/21 MR/MR prostate wo/w con: R97.20, ELEVATED PSA Copies to: Boris Mccullough MD MRI OF THE PROSTATE GLAND WITHOUT [...] PM COT by: Lloyd Tsang MD Diplomate, [place] [employer] Report Completed: Jul 21, 2021 7:55:17 PM COT Transcribed By: 07/24/21 0958 Dictated By: NON STAFF 07/21/212054 Signed By: 07/24/21 1000 Normal [facility] ISTAT XRay CREon 07-20-2021 Creatinine [Mass/Vol] 1.0 mg/dL Normal 0.6-1.3 [facility] Comment on above: Result Comment: ER/E SD physician is notified/shown all ISTAT results. Critical values may be confirmed by laboratory testing if deemed necessary by ER attending doctor. Performed By: #### I SCRE #### [facility] [address] [place] [address] Point of Care testing , ISTAT GFR ( > 60 [facility] Comment on above: Result Comment: GFR estimated reference range: According to KDOQI guidelines, <60 ml/min/1.73m2 is sufficient to diagnose a patient with chronic kidney disease. PERFORMED BY: [place] [address] PATHOLOGIST EVENT MARKETING INTERN DANIEL ABURTO M.D. Performed By: #### I SCRE #### [facility] [address] [place] [address] Point of Care testing , ISTAT GFR (Non- Am > 60 [facility] Comment on above: Performed By: #### I SCRE #### [facility] [address] [place] [address] Point of Care testing , Vital Signs Date Time Vital Sign Value Performing Clinician Facility 06-15-2024 11:37-0400 Diastolic blood pressure 82 mm[Hg] Boris MCCULLOUGH [facility] 06-15-2024 11:37-0400 Mean blood pressure 107 mm[Hg] Boris MCCULLOUGH [facility] 06-15-2024 11:37-0400 Systolic blood pressure 156 mm[Hg] Borisaden MCCULLOUGH [facility] 06-15-2024 11:30-0400 Blood Pressure Location Boris MCCULLOUGH [facility] 06-15-2024 11:30-0400 Diastolic blood pressure 70 mm[Hg] Boris MCCULLOUGH [facility] 06-15-2024 11:30-0400 Heart rate 76 /min Boris MCCULLOUGH [facility] 06-15-2024 11:30-0400 Respiratory rate 16 /min Boris MCCULLOUGH [facility] 06-15-2024 11:30-0400 Systolic blood pressure 160 mm[Hg] Boris MCCULLOUGH [facility] 03-24-2024 08:47-0400 Body height 187.[address] [facility] 03-24-2024 08:47-0400 Body mass index (BMI) [Ratio] 28.4 kg/m2 [facility] 03-24-2024 08:47-0400 Body weight 100.[address] [facility] 03-24-2024 08:47-0400 Diastolic blood pressure 77 mm[Hg] [facility] 03-24-2024 08:47-0400 Heart rate 54 /min [facility] 03-24-2024 08:47-0400 Respiratory rate 12 /min [facility] 03-24-2024 08:47-0400 Systolic blood pressure 158 mm[Hg] [facility] 09-24-2023 10:00-0500 Body height 187.96 cm Zachary Ball Other [facility] Other 09-24-2023 10:00-0500 Body mass index (BMI) [Ratio] 28.45 kg/m2 Zachary Ball Other [facility] Other 09-24-2023 10:00-0500 Body weight 100.52 kg Zachary Ball Other [facility] Other 09-24-2023 10:00-0500 Diastolic blood pressure 82 mm[Hg] Zachary Ball Other [facility] Other 09-24-2023 10:00-0500 Respiratory rate 12 /min Zachary Ball Other [facility] Other 09-24-2023 10:00-0500 Systolic blood pressure 143 mm[Hg] Zachary Ball Other [facility] Other 03-25-2023 11:00-0400 Body height 187.96 cm Zachary Ball Other [facility] Other 03-25-2023 11:00-0400 Body mass index (BMI) [Ratio] 28.29 kg/m2 Zachary Ball Other [facility] Other 03-25-2023 11:00-0400 Body weight 99.97 kg Zachary Ball Other [facility] Other 03-25-2023 11:00-0400 Diastolic blood pressure 80 mm[Hg] Zachary Ball Other [facility] Other 03-25-2023 11:00-0400 Respiratory rate 12 /min Zachary Ball Other [facility] Other 03-25-2023 11:00-0400 Systolic blood pressure 139 mm[Hg] Zachary Ball Other [facility] Other 05-18-2022 09:28-0400 Blood Pressure Location Boris [facility]CCULLOUGH [facility] 05-18-2022 09:28-0400 Diastolic blood pressure 81 mm[Hg] Boris [facility]CCULLOUGH [facility] 05-18-2022 09:28-0400 Heart rate 74 /min Boris MCCULLOUGH [facility] 05-18-2022 09:28-0400 Respiratory rate 16 /min Boris MCCULLOUGH [facility] 05-18-2022 09:28-0400 Systolic blood pressure 148 mm[Hg] Boris MCCULLOUGH [facility] 02-20-2022 08:45-0400 Blood Pressure Location Boris MCCULLOUGH [facility] 02-20-2022 08:45-0400 Diastolic blood pressure 75 mm[Hg] Boris MCCULLOUGH [facility] 02-20-2022 08:45-0400 Heart rate 73 /min Boris MCCULLOUGH [facility] 02-20-2022 08:45-0400 Systolic blood pressure 142 mm[Hg] Boris MCCULLOUGH [facility] Encounters Encounter Date Encounter Type Care Provider Facility Start: 06-18-2025 ambulatory Boris MCCULLOUGH Facili ty:[facility] Flores Start: 06-15-2024 End: 06-15-2024 ambulatory Boris Joy CONSUELO Facility:[facility] Start: 06-15-2024 End: 06-15-2024 Patient encounter procedure Boris MCCULLOUGH [facility] Start: 03-24-2024 End: 03-24-2024 ambulatory [facility] Work Phone: Start: 03-24-2024 End: 03-24-2024 Patient encounter procedure [facility] Work Phone: Start: 11-12-2023 End: 11-12-2023 ambulatory Zachary Draper Other [facility] Other Start: 11-12-2023 Telephone encounter Zachary Ball [facility] Start: 09-24-2023 End: 09-24-2023 ambulatory Zachary Ball Other [facility] Other Start: 09-24-2023 Office outpatient vi sit 25 minutes Zachary Ball [facility] Start: 09-17-2023 End: 09-17-2023 ambulatory Zachary Ball Other [facility] Other Start: 09-17-2023 Telephone encounter Zachary Ball [facility] Start: 06-26-2023 End: 06-26-2023 ambulatory Zachary Ball Other [facility] Other Start: 06-26-2023 Telephone encounter Zachary Ball [facility] Start: 06-14-2023 End: 06-14-2023 Lab Drop off Boris MCCULLOUGH [facility] Start: 03-27-2023 End: 03-27-2023 ambulatory Zachary Draper Other [facility] Other Start: 03-27-2023 Telephone encounter Zachary Draper [facility] Start: 03-25-2023 End: 03-25-2023 ambulatory Zachary Draper Other [facility] Other Start: 03-25-2023 Patient encounter procedure Zachary Draper [facility] Start: 09-20-2022 End: 09-21-[address] ZACHARY DRAPER Facility:[facility] Start: 05-18-2022 End: 05-18-2022 Patient encounter procedure Boris MCCULLOUGH [facility] Start: 05-01-2022 End: 05-01-2022 Patient encounter procedure Boris MCCULLOUGH [facility] Start: 03-22-2022 End: 03-23-[address] ZACHARY DRAPER Facility:[facility] Start: 03-21-2022 End: 04-25-2022 Pre-admission assessment Boris MCCULLOUGH [facility] Start: 03-21-2022 Adult health examination Zachary Draper Other [facility] Other Start: 03-20-2022 End: 03-20-2022 Pre-procedure evaluation check Zachary Draper Other [facility] Other Start: 02-20-2022 End: 02-20-2022 Patient encounter procedure Boris MCCULLOUGH [facility] Procedures Date Procedure Procedure Detail Performing Clinician Start: 09-14-2021 Biopsy of prostate Patjoy MCCULLOUGH Start: 09-14-2021 Transrectal biopsy o f prostate using ultrasound guidance Boris MCCULLOUGH Start: 03-31-2020 Colonoscopy Boris MARQUEZ Start: 11-11-2018 End: 03-08-2020 Screening for malignant neoplasm of prostate Zachary Draper Other Arthroscopy of knee Boris MCCULLOUGH Cataract extraction and insertion of intraocular lens Boris MCCULLOUGH Depression screening August Draper Other Plan of Treatment Date Care Activity Detail Author Comprehensive metabo lic 2000 panel - Serum or Plasma [facility] Immunizations Immunization Date Immunization Notes Care Provider Robert velasquez 09-20-2022 Prevnar 20 Zachary Draper Other [facility] 09-25-2021 SARS-CoV-2 (COVID-19 ) mRNA BNT-162b2 vax Boris Casacanda [facility] Comment on above: Result Comment: chito feliciano 02-20-2021 SARS-CoV-2 (COVID-19 ) mRNA BNT-162b2 vax Boris Casacanda [facility] 01-30-2021 COVID-19 Vaccine Pfi zer - Documentation Purposes Only Zachary Draper Other [facility] 01-23-2021 SARS-CoV-2 (COVID-19 ) mRNA BNT-162b2 vax Boris Casacanda [facility] 12-17-2020 zoster vaccine recombinant Zachary Draper Other [facility] 12-17-2020 zoster vaccine, live August Draper Other [facility] 09-21-2020 zoster vaccine recombinant Zachary Baron Other [facility] 02-05-2017 diphtheria, tetanus toxoids and acellular pertussis vaccine, unspecified formulation Zachary Draper Other [facility] 07-27-2013 tetanus and diphther ia toxoids, adsorbed, preservative free, for adult use (2 Lf of tetanus toxoid and 2 Lf of diphtheria toxoid) Boris MCCULLOUGH [facility] 07-27-2013 tetanus and diphther ia toxoids, adsorbed, preservative free, for adult use (5 Lf of tetanus toxoid and 2 Lf of diphtheria toxoid) Zachary Drapre Other [facility] Other pneumococcal Conjuga te, unspecified formulation; Translations: [Need for prophylactic vaccination against Streptococcus pneumoniae (pneumococcus)] Zachary Draper Other [facility] Other Payers Date Payer Category Payer Medicare [id number] 1958 Private Health Insurance [id number] 1955 Unknown [id number] 1955 Unknown [id number] 1955 Unknown [id number] 1955 Unknown [id number] Private Health Insurance [employer] [id number] Self-pay Self Pay [id number] Social History Date Type Detail Facility Start: 02-20-2022 End: 05-18-2022 Tobacco smoking status Occasional tobacco smoker (finding) [facility] [employer] Comment on above: cigar once a week Start: 06-14-2023 End: 06-15-2024 Tobacco smoking status Ex-smoker (finding) [facility] [employer] Comment on above: cigar once a week Sex Assigned At Male [facility] [employer] Start: 1955 Sex Assigned At Male [facility] Functional Status Date Assessment Result Facility 06-15-2024 Functional Status N/A [facility] 05-18-2022 Functional Status N/A [facility] [employer] Clinical Notes 02-19-2022 to 06-15-2024 Note Date & Type Note Facility 06-15-2024 Hospital Discharge instructions Patient Education 06/15/2024 08:36:01 Prostate Cancer Screening Prostate Cancer Screening Prostate cancer screening is testing that is done to check for the presence of prostate cancer in men. The prostate gland is a walnut-sized gland that is located below the bladder and in front of the rectum in males. The function of the prostate is to add fluid to semen during ejaculation. Prostate cancer is one of the most common types of cancer in men. Who should have prostate cancer screening? Screening recommendations vary based on age and other risk factors, as well as between the professional organizations who make the recommendations. In general, screening is recommended if: You are age 50 to 70 and have an average risk for prostate cancer. You should talk with your health care provider about your need for screening and how often screening should be done. Because most prostate cancers are slow growing and will not cause , screening in this age group is generally reserved for men who have a 10- to 15-year life expectancy. You are younger than age 50, and you have these risk factors: ?Having a father, brother, or uncle who has been diagnosed with prostate cancer. The risk is higher if your family member's cancer occurred at an early age or if you have multiple family members with prostate cancer at an early age. ?Being a male who is Black or is of [place] or sub-Saharan descent. In general, screening is not recommended if: You are younger than age 40. You are between the ages of 40 and 49 and you have no risk factors. You are 70 years of age or older. At this age, the risks that screening can cause are greater than the benefits that it may provide. If you are at high risk for prostate cancer, your health care provider may recommend that you have screenings more often or that you start screening at a younger age. How is screening for prostate cancer done? The recommended prostate cancer screening test is a blood test called the prostate-specific antigen (PSA) test. PSA is a protein that is made in the prostate. As you age, your prostate naturally produces more PSA. Abnormally high PSA levels may be caused by: Prostate cancer. An enlarged prostate that is not caused by cancer (benign prostatic hyperplasia, or BPH). This condition is very common in older men. A prostate gland infection (prostatitis) or urinary tract infection. Certain medicines such as male hormones (like testosterone) or other medicines that raise testosterone levels. A rectal exam may be done as part of prostate cancer screening to help provide information about the size of your prostate gland. When a rectal exam is performed, it should be done after the PSA level is drawn to avoid any effect on the results. Depending on the PSA results, you may need more tests, such as: A physical exam to check the size of your prostate gland, if not done as part of screening. Blood and imaging tests. A procedure to remove tissue samples from your prostate gland for testing (biopsy). This is the only way to know for certain if you have prostate cancer. What are the benefits of prostate cancer screening? Screening can help to identify cancer at an early stage, before symptoms start and when the cancer can be treated more easily. There is a small chance that screening may lower your risk of dying from prostate cancer. The chance is small because prostate cancer is a slow-growing cancer, and most men with prostate cancer from a different cause. What are the risks of prostate cancer screening? The main risk of prostate cancer screening is diagnosing and treating prostate cancer that would never have caused any symptoms or problems. This is called overdiagnosisand overtreatment. PSA screening cannot tell you if your PSA is high due to cancer or a different cause. A prostate biopsy is the only procedure to diagnose prostate cancer. Even the results of a biopsy may not tell you if your cancer needs to be treated. Slow-growing prostate cancer may not need any treatment other than monitoring, so diagnosing and treating it may cause unnecessary stress or other side effects. Questions to ask your health care provider When should I start prostate cancer screening? What is my risk for prostate cancer? How often do I need screening? What type of screening tests do I need? How do I get my test results? What do my results mean? Do I need treatment? Where to find more information The [place] [employer]: www.cancer.org [place] [employer]: www.auanet.org Contact a health care provider if: You have difficulty urinating. You have pain when you urinate or ejaculate. You have blood in your urine or semen. You have pain in your back or in the area of your prostate. Summary Prostate cancer is a common type of cancer in men. The prostate gland is located below the bladder and in front of the rectum. This gland adds fluid to semen during ejaculation. Prostate cancer screening may identify cancer at an early stage, when the cancer can be treated more easily and is less likely to have spread to other areas of the body. The prostate-specific antigen (PSA) test is the recommended screening test for prostate cancer, but it has associated risks. Discuss the risks and benefits of prostate cancer screening with your health care provider. If you are age 70 or older, the risks that screening can cause are greater than the benefits that it may provide. This information is not intended to replace advice given to you by your health care provider. Make sure you discuss any questions you have with your health care provider. Document Revised: 03/19/2022 Document Reviewed: 03/19/2022 [employer] Patient Education 2023 [employer]. Follow Up Care 06/14/2023 10:41:33 With:CONSUELO HALL, Boris Hamilton, URL Address: [facility] [address] [place] [address]- When: Unknown [facility] [facility] 06-15-2024 Note Patient Education Oncology Prostate Cancer Screening Prostate cancer screening is testing that is done to check for the presence of prostate cancer in men. The prostate gland is a walnut-sized gland that is located below the bladder and in front of the rectum in males. The function of the prostate is to add fluid to semen during ejaculation. Prostate cancer is one of the most common types of cancer in men. Who should have prostate cancer screening? Screening recommendations vary based on age and other risk factors, as well as between the professional organizations who make the recommendations. In general, screening is recommended if: ? You are age 50 to 70 and have an average risk for prostate cancer. You should talk with your health care provider about your need for screening and how often screening should be done. Because most prostate cancers are slow growing and will not cause , screening in this age group is generally reserved for men who have a 10- to 15-year life expectancy. ? You are younger than age 50, and you have these risk factors: ? Having a father, brother, or uncle who has been diagnosed with prostate cancer. The risk is higher if your family member's cancer occurred at an early age or if you have multiple family members with prostate cancer at an early age. ? Being a male who is Black or is of [place] or sub-Saharan descent. In general, screening is not recommended if: ? You are younger than age 40. ? You are between the ages of 40 and 49 and you have no risk factors. ? You are 70 years of age or older. At this age, the risks that screening can cause are greater than the benefits that it may provide. If you are at high risk for prostate cancer, your health care provider may recommend that you have screenings more often or that you start screening at a younger age. How is screening for prostate cancer done? The recommended prostate cancer screening test is a blood test called the prostate-specific antigen (PSA) test. PSA is a protein that is made in the prostate. As you age, your prostate naturally produces more PSA. Abnormally high PSA levels may be caused by: ? Prostate cancer. ? An enlarged prostate that is not caused by cancer (benign prostatic hyperplasia, or BPH). This condition is very common in older men. ? A prostate gland infection (prostatitis) or urinary tract infection. ? Certain medicines such as male hormones (like testosterone) or other medicines that raise testosterone levels. A rectal exam may be done as part of prostate cancer screening to help provide information about the size of your prostate gland. When a rectal exam is performed, it should be done after the PSA level is drawn to avoid any effect on the results. Depending on the PSA results, you may need more tests, such as: ? A physical exam to check the size of your prostate gland, if not done as part of screening. ? Blood and imaging tests. ? A procedure to remove tissue samples from your prostate gland for testing (biopsy). This is the only way to know for certain if you have prostate cancer. What are the benefits of prostate cancer screening? ? Screening can help to identify cancer at an early stage, before symptoms start and when the cancer can be treated more easily. ? There is a small chance that screening may lower your risk of dying from prostate cancer. The chance is small because prostate cancer is a slow-growing cancer, and most men with prostate cancer from a different cause. What are the risks of prostate cancer screening? The main risk of prostate cancer screening is diagnosing and treating prostate cancer that would never have caused any symptoms or problems. This is called overdiagnosisand overtreatment. PSA screening cannot tell you if your PSA is high due to cancer or a different cause. A prostate biopsy is the only procedure to diagnose prostate cancer. Even the results of a biopsy may not tell you if your cancer needs to be treated. Slow-growing prostate cancer may not need any treatment other than monitoring, so diagnosing and treating it may cause unnecessary stress or other side effects. Questions to ask your health care provider ? When should I start prostate cancer screening? ? What is my risk for prostate cancer? ? How often do I need screening? ? What type of screening tests do I need? ? How do I get my test results? ? What do my results mean? ? Do I need treatment? Where to find more information ? The [place] [employer]: www.cancer.org ? [place] [employer]: www.auanet.org Contact a health care provider if: ? You have difficulty urinating. ? You have pain when you urinate or ejaculate. ? You have blood in your urine or semen. ? You have pain in your back or in the area of your prostate. Summary ? Prostate cancer is a common type of cancer in men. The prostate gland is located below the bladder and in front of the rectum. (more content not included)... [facility] 02-06-2024 Evaluation note Encounter Date Diagnosis Assessment Notes Nov, IFG (impaired fasting glucose) (ICD-10 - R73.01) [facility] 12-19-2023 Evaluation note* Encounter Date Diagnosis [...] exercise for 30 minutes, 3-5 times weekly. [facility] 12-12-2023 Evaluation note* Encounter Date Diagnosis Assessment Notes Treatment Notes Treatment Clinical Notes Sep, Anemia (ICD-10 - D64.9) [facility] 09-20-2023 Evaluation note* Encounter Date Diagnosis Assessment Notes Treatment Notes Treatment Clinical Notes Jun, Pancytopenia (ICD-10 - D61.818) [facility] 06-19-2023 Evaluation note* Encounter Date Diagnosis [...] High risk medication use (ICD-10 - Z79.899) [facility] 08-12-2022 Hospital Discharge instructions Patient Education [...] urethra. Follow these instructions at home: Take sedk-hra-bfpmril and prescription medicines only as told by [...] 09/23/2006 Document Revised: 08/18/2019 Document Reviewed: 10/28/2017 [employer] Patient Education 2020 [employer]. Follow Up Care 05/01/2022 15:50:37 With:CONSUELO HALL, Boris Hamilton, URL Address: [address] [place] [address]- When:Within 1 Year(s) [facility] 07-26-2022 Hospital Discharge instructions Patient Education [...] for your post-operative appointment in 1-2 weeks [phone] or [phone] Follow Up Care 04/25/2022 13:36:30 With:Boris MCCULLOUGH Address: [facility] [address] [place] [address]- Business (1) When:05/15/2022 13:37:53 [facility]05-16-2022 Hospital Discharge instructions Patient Education 02/19/2022 [...] who: Are older than age 65. Are -Malaysian. Are obese. Have a family history of [...] cells. Follow these instructions at home: Take fehw-dbk-dofbsyn and prescription medicines only as told by [...] 09/23/2006 Document Revised: 09/05/2018 Document Reviewed: 06/03/2017 [employer] Patient Education 2020 [employer] Follow Up Care 01/29/2022 10:14:39 With:Boris MCCULLOUGH MD, URL Address: [facility] [address] [place] [address]- When: Unknown [facility] Evaluation + Plan note Future Appointments Appointment Date:05/11/2022 08:15:00 AM Scheduled Provider:Boris MCCULLOUGH MD Location:[facility] Appointment Type:URO Office Visit [facility] Evaluation + Plan note Future Appointments Appointment Date:04/26/2022 08:45:00 AM Scheduled Provider: Location:[facility] Appointment Type:Urology CALL PAT FT Appointment Date:05/01/2022 01:00:00 PM Scheduled Provider: Location:[facility] Appointment Type:Urology FT Appointment Date:05/11/2022 08:15:00 AM Scheduled Provider:Bor[facility]CCULLOUGH [facility] Future App[facility]ments Appointment Date:05/18/2022 08:00:00 AM Scheduled Provider:Boris MCCULLOUGH [facility] Type:[facility] Office Visit Diagnostic Tests Pending * Prostate Histology ([facility]) [facility] Future App[facility]ments Appointment Date:05/27/2023 08:45:00 AM Scheduled Provider:Boris MCCULLOUGH [facility] Office Visit Diagnostic Tests Pending * PSA Total 02/04/23 [facility] evaluation + Plan note Future Appointments Appointment Date:06/15/2024 11:15:00 AM Scheduled Provider:Boris MCCULLOUGH MD [facility] Future Appointments Appointment Date:06/18/2025 08:15:00 AM Scheduled Provider:Boris MCCULLOUGH [facility] Type:[facility] Office Visit Diagnostic Tests Pending * PSA Total 06/15/24 [facility] evaluation noteNo [facility] Other Evaluation note* Diagnosis Onset Date Resolution Status Benign prostatic hyperplasia with lower urinary tract symptoms acute Hypercholesterolemia acute Hypertension acute IFG (impaired fasting glucose) acute Nicotine addiction acute Overweight acute Screening PSA (prostate specific antigen) acute Medicare annual wellness visit, subsequent noneactive [facility] Work Phone: History general Narrative - [...] 03/31/2020 Surgical History Transrectal Ultrasound (TRUS) w [facility] biopsy 04/2022 Surgical History Transrectal Ultrasound (TRUS) w [facility] biopsy 09/2021 Hospitalization History see surgical history [facility] Hospital course Narrative No data available for this section [facility] Hospital Discharge instructions No data available for this section [facility] No data available for this section [facility] Summary Purpose Family History No Family History Records Found Relationship Condition Age at Onset Recorded Date/T moo father Diabetes mellitus Unknown Not Specified Heart problem Unknown Not Specified Heart disease Unknown Advance Directives No Advanced Directives Records Found Advance Directive Response Recorded Date/ Time Advance [...] section and content) DATE CREATED AUTHOR 02/01/2022 [facility] DATE CREATED AUTHOR AUTHOR'S ORGANIZ ATION 09/27/2022 [facility] DATE CREATED AUTHOR AUTHOR'S ORGANIZ ATION 06/17/2024 [facility] Care Team (unrecognized sect ion and content) Team Status: Active Member Role Status Dates Zachary Draper DO Primary Care Provider Active Team Status: Inactive Member Role Status Dates Zachary Draper DO Primary Care Provide r, Attending Provider [...] BE BASED ON THE PRIMARY CLINICAL RECORDS. [employer] [facility] provides no warranty or guarantee of the accuracy or completeness of information in this document.
[2025-03-31 10:07] LABS: Basophils Percent Auto 0.9 % (0.2-2.0); Eosinophils Absolute Auto 0.1 10^3/uL (0.0-0.7); Eosinophils Percent Auto 2.2 % (0.9-7.0); Hematocrit 39.8 % (42.0-54.0); Hemoglobin 14.2 g/dL (14.0-18.0); Immature Granulocytes Abs Auto 0.01 10^3/uL (0.00-0.03); Immature Granulocytes Pct Auto 0.2 % (0.0-0.5); Lymphocytes Absolute Auto 1.3 10^3/uL (1.2-3.8); Lymphocytes Percent Auto 27.2 % (20.5-60.0); Mean Corpuscular HGB Conc 35.7 g/dL (29.9-35.2); Mean Corpuscular Hemoglobin 30.5 pg (25.9-34.0); Mean Corpuscular Volume 85.6 fL (80.0-94.0); Mean Platelet Volume 9.4 fL (9.5-13.5); Monocytes Absolute Auto 0.4 10^3/uL (0.3-0.8); Monocytes Percent Auto 8.7 % (1.7-12.0); Neutrophils Absolute Auto 2.8 10^3/uL (1.4-6.5); Neutrophils Percent Auto 60.8 % (43.0-75.0); Platelet Count 158 10^3/uL (150-450); Red Blood Count 4.65 10^6/uL (4.70-6.10); Red Cell Distribution Width 12.6 % (11.0-15.0); White Blood Count 4.6 10^3/uL (4.0-11.0)
[2025-03-31 10:42] LABS: Alanine Aminotransferase 37 U/L (16-63); Albumin Globulin Ratio 1.2; Albumin Level 4.1 g/dL (3.4-5.0); Alkaline Phosphatase 76 U/L (46-116); Anion Gap 11.9; Aspartate Amino Transferase 23 U/L (15-37); BUN Creatinine Ratio 28.9; Bilirubin Total 0.6 mg/dL (0.2-1.0); Calcium 9.5 mg/dL (8.5-10.1); Carbon Dioxide 26.4 mmol/L (21.0-32.0); Chloride 104 mmol/L (98-107); Chol HDL Ratio 3.5; Cholesterol 142 mg/dL (<=200); Estimated GFR (African America >60 (>=60 mL/min/1.73m^2); Estimated GFR (Non-African Ame >60 (>=60 mL/min/1.73m^2); Globulin 3.4 g/dL; Glucose 154 mg/dL (74-106); HDL Cholesterol 40 mg/dL (40-60); Potassium 4.3 mmol/L (3.5-5.1); Sodium 138 mmol/L (136-145); Total Protein 7.5 g/dL (6.4-8.2); Triglycerides 80 mg/dL (<=150)
[2025-03-31 11:11] LABS: Prostate Specific Antigen Scrn 4.93 ng/mL (<=4.00)
[2025-03-31 14:01] LABS: Estimated Average Glucose 126 mg/dL
== END 2025-03-31 09:48 | disposition home or self-care (01) ==
LOC: LAB 09:49
PROVIDERS: PCP Internal Medicine; Visit Provider Internal Medicine
DX: R73.01 Impaired fasting glucose (principal); E78.00 Pure hypercholesterolemia, unspecified; I10 Essential (primary) hypertension; Z12.5 Encounter for screening for malignant neoplasm of prostate
CPT/HCPCS: 36415; 80053; 80061; 83036; 85025; G0103